=== PATIENT | male | born 1950 | race Caucasian/White ===

== ENCOUNTER 2023-02-15 16:52 | Emergency (ER) | payer MEDICARE, SELFPAY ==
--- NOTE | ~2023-02-15 | XR_ITS ---
EXAMINATION: XR CHEST CLINICAL INFORMATION: Cough COMPARISON: October 27, 2007 TECHNIQUE: 2 views of the chest were obtained. FINDINGS: No significant abnormality is noted involving the heart, lungs, mediastinum, bony thorax or soft tissues. XR/XR chest 2V IMPRESSION: No acute disease.
[2023-02-15 17:05] VITALS: BP 134/75; PULSE 94; RESP 16; TEMP 37.9; O2SAT 95; BMI 22.1
--- NOTE | 2023-02-15 17:08 | ED.GENADULT ---
HPI - General Adult General Chief complaint: General Medical Stated complaint: sugar out of control per dr Time Seen by Provider: 02/15/23 19:36 Source: patient Mode of arrival: ambulatory Limitations: no limitations History of Present Illness HPI narrative: Patient comes emergency room complaining of high blood glucose. Patient states that at home it was 216. Patient states that he called his primary care physician, told his PCP that patient has generalized weakness. Denies any fever chills, no chest pain, no URI or UTI symptoms, no abdominal pain. Related Data Previous Rx's Medication Instructions Recorded cefuroxime axetil 500 mg tablet 500 mg PO BID #14 tabs 02/15/23 Allergies Allergy/AdvReac Type Severity Reaction Status Date / Time No Known Allergies Allergy Unverified 06/25/20 14:36 Review of Systems Review of Systems: Constitutional : No Weight loss, No Fever, No Chills, No Night Sweats, coughing of generalized fatigue and weakness ENT/Mouth : No Hearing loss, No Ear Pain, No Nasal Congestion, No Sinus Pain, No Hoarseness, No sore throat, No Rhinorrhea, No Swallowing Difficulty Eyes: No Eye Pain, No Swelling, No Redness, No Foreign Body, No Discharge, No Vision Changes Cardiovascular : No Chest Pain, No SOB, No Dyspnea on Exertion, No Orthopnea, No Edema, No Palpitations Respiratory : No Cough, No Sputum, No Wheezing, No Smoke Exposure, No Dyspnea Gastrointestinal : No Nausea, No Vomiting, No Diarrhea, No Constipation, No abdominal Pain, No Hematochezia, No Melena Genitourinary : no irregular bleeding, No Dysuria, No Urinary Frequency, No Hematuria, No Urinary Incontinence, No Urgency, No Flank Pain, No Urinary Flow Changes, No Hesitancy Musculoskeletal : No joint pain, No Myalgias, No Joint Swelling Skin : No Skin Lesions, No rash Neuro : No Weakness, No Numbness, No Paresthesias, No Loss of Consciousness, No Dizziness, No Headache Psych : No Anxiety/Panic, No Depression, No SI/HI/AH/VH, No Social Issues, Heme/Lymph: No Bruising, No Bleeding,No Lymphadenopathy Endocrine : No Polyuria, No Polydipsia, No Temperature Intolerance, complaining of blood glucose above 200 PMFSH Past Medical History Medical History (Updated 02/15/23 @ 21:29 by Gilda Garcia MD) Diabetes type 2, controlled Social History Social History Advance Directives: No Advance Directives Information Provided: No Physical Exam ED Vital Signs: Vital Signs - 24 hr 02/15/23 17:05 Temperature 100.2 F Pulse Rate 94 Respiratory Rate 16 Blood Pressure 134/75 Pulse Oximetry 95 Oxygen Delivery Method Room Air BMI result Body Mass Index 22.1 Const Other: Appearance: Alert. Oriented X3. No acute distress. Eyes: Pupils equal, round and reactive to light. ENT: Pharynx normal. Neck: Normal inspection. Neck supple. No lymph nodes noted. No crepitus CVS: Normal heart rate and rhythm. Pulses normal. Normal S1 and S2 Respiratory: No respiratory distress. Breath sounds normal. No Wheezing. No rales Abdomen: Soft and nontender. No rigidity. No distention. Skin: Skin warm and dry. Normal skin color. Normal skin turgor. Extremities: No lower extremity edema. No Lacerations. No Rash Neuro: Oriented X 3. No motor deficit. No sensory deficit. Moving all extremities. No slurred speech. CN 2 through 12 grossly intact Psych: calm, cooperative, normal affect Course Course Course Narrative: RME - 72 yo male with history of DM2 on metform, glipizide, actos, active smoker who presents to the ER for evaluation of elevated sugars at home for the last couple of weeks. His glucose was 270 today at home which is very unusual for him. PCP sent him in to r/o an infection. He has had decreased appetite and a nonproductive cough lately. Plan: basic labs, COVID, CXR Medical Decision Making Medical Decision Making [facility] Narrative: -patient tested negative for COVID -blood glucose 239. White blood cell count within normal limits -I discussed with the patient that his blood sugar is fairly well controlled, today 239. Discussed with the patient that if it is high for him, he can increase his glipizide from 2.5 mg to 5 mg. Patient is at max dose of metformin and pioglitazone -it has a urinary tract infection, 1st dose of cefuroxime given in the emergency room. Differential Diagnosis Differential Diagnoses: The differential diagnosis associated with the presentation includes Lab Data [facility] Lab Attestation statement: I reviewed the patient's lab results. 02/15/23 18:02 02/15/23 18:02 Labs: Lab Results 02/15/23 02/15/23 02/15/23 Range/Units 18:02 18:02 18:02 WBC 8.1 (4.8-10.8) X10*3/uL RBC 4.41 L (4.60-5.80) X10*6/uL Hgb 13.7 L (14.0-18.0) g/dl Hct 38.9 L (42.0-52.0) % MCV 88.2 (80.0-98.0) fL MCH 31.1 (27.0-33.0) pg MCHC 35.2 (31.0-36.0) g/dl RDW 12.8 (11.0-16.0) % Plt Count 274 (160-400) X10*3/uL MPV 8.9 L (9.4-12.4) fL Immature Gran % (Auto) 0.5 H (0.0-0.4) % Neut % (Auto) 79.3 H (45-73) % Lymph % (Auto) 8.1 L (20-40) % [place] % (Auto) 11.5 H (2-11) % Eos % (Auto) 0.0 (0-4) % Baso % (Auto) 0.6 (0-2) % Lymph # (Auto) 0.7 L (1.2-4.9) X10*3/uL [place] # (Auto) 0.9 (0.1-1.2) X10*3/uL Eos # (Auto) 0.0 (0.0-0.4) X10*3/uL Baso # (Auto) 0.1 (0.0-0.2) X10*3/uL Abs Immat Gran (auto) 0.04 H (0.00-0.03) X10*3/uL Absolute Neuts (auto) 6.4 (2.0-8.3) x10*3/uL Absolute Nucleated RBC 0.000 (0.0-0.012) X10*3/uL Nucleated RBC % (auto) 0.0 (0.0-0.2) /100WBC Sodium 140 (135-145) mmol/L Potassium 4.1 (3.3-5.1) mmol/L Chloride 104 (96-108) mmol/L Carbon Dioxide 23 (22-29) mmol/L Anion Gap 17 (12-20) BUN 24 H (9-16) mg/dL Creatinine 0.94 (0.5-1.4) mg/dL Estim Creat Clear Calc 70.3 Estimated GFR > 60 Random Glucose 239 H (60-115) mg/dL Calcium 9.2 (8.4-10.2) mg/dL Magnesium 1.7 (1.6-2.6) mg/dL Total Bilirubin 0.5 (0.0-1.0) mg/dL Direct Bilirubin 0.2 (0.0-0.5) mg/dL AST 20 (5-37) U/L ALT 19 (0-40) U/L Alkaline Phosphatase 80 (39-117) U/L Total Protein 6.5 (6.5-8.0) g/dL Albumin 3.7 (3.5-5.0) g/dL Urine Color Urine Appearance Urine pH (5.0-9.0) Ur Specific [place] (1.005-1.025) Urine Protein (Neg-Trace) mg/dL Urine Glucose (UA) (Negative) mg/dL Urine Ketones (Negative) mg/dL Urine Blood (Negative) Urine Nitrite (Negative) Ur Leukocyte Esterase (Negative) COVID-19 ([facility]) Negative (Negative) COVID-19 Clin Com See Note 02/15/23 Range/Units 20:58 WBC (4.8-10.8) X10*3/uL RBC (4.60-5.80) X10*6/uL Hgb (14.0-18.0) g/dl Hct (42.0-52.0) % MCV (80.0-98.0) fL MCH (27.0-33.0) pg MCHC (31.0-36.0) g/dl RDW (11.0-16.0) % Plt Count (160-400) X10*3/uL MPV (9.4-12.4) fL Immature Gran % (Auto) (0.0-0.4) % Neut % (Auto) (45-73) % Lymph % (Auto) (20-40) % [place] % (Auto) (2-11) % Eos % (Auto) (0-4) % Baso % (Auto) (0-2) % Lymph # (Auto) (1.2-4.9) X10*3/uL [place] # (Auto) (0.1-1.2) X10*3/uL Eos # (Auto) (0.0-0.4) X10*3/uL Baso # (Auto) (0.0-0.2) X10*3/uL Abs Immat Gran (auto) (0.00-0.03) X10*3/uL Absolute Neuts (auto) (2.0-8.3) x10*3/uL Absolute Nucleated RBC (0.0-0.012) X10*3/uL Nucleated RBC % (auto) (0.0-0.2) /100WBC Sodium (135-145) mmol/L Potassium (3.3-5.1) mmol/L Chloride (96-108) mmol/L Carbon Dioxide (22-29) mmol/L Anion Gap (12-20) BUN (9-16) mg/dL Creatinine (0.5-1.4) mg/dL Estim Creat Clear Calc Estimated GFR Random Glucose (60-115) mg/dL Calcium (8.4-10.2) mg/dL Magnesium (1.6-2.6) mg/dL Total Bilirubin (0.0-1.0) mg/dL Direct Bilirubin (0.0-0.5) mg/dL AST (5-37) U/L ALT (0-40) U/L Alkaline Phosphatase (39-117) U/L Total Protein (6.5-8.0) g/dL Albumin (3.5-5.0) g/dL Urine Color Yellow Urine Appearance Cloudy Urine pH 5.5 (5.0-9.0) Ur Specific [place] 1.015 (1.005-1.025) Urine Protein 30 (1+) H (Neg-Trace) mg/dL Urine Glucose (UA) 100 H (Negative) mg/dL Urine Ketones Trace (Negative) mg/dL Urine Blood Moderate (2+) H (Negative) Urine Nitrite Negative (Negative) Ur Leukocyte Esterase Large (3+) H (Negative) COVID-19 ([facility]) (Negative) COVID-19 Clin Com Discharge Plan Discharge Clinical Impression: Acute UTI, Acute hyperglycemia Patient Disposition: Home, Self-Care Instructions: Urinary Tract Infection in Men (ED), Diabetic Hyperglycemia (ED) Additional Instructions: You have a urinary tract infection, please continue taking your current medications at the current dose. After he finished treatment for urinary tract infection, if your glucose is still elevated, please discuss with your primary care physician adjusting the dose of the medication. Please follow-up with your primary care physician tomorrow. If you have any worsening or new symptoms, please return to the emergency room or call 911 Prescriptions: New cefuroxime axetil 500 mg tablet 500 mg PO BID Qty: 14 0RF
[2023-02-15 18:07] LABS: MANUAL DIFF FLAG NO
[2023-02-15 18:34] LABS: Basophils Absolute Auto 0.1 X10*3/uL (0.0-0.2); Basophils Percent Auto 0.6 % (0-2); Hematocrit 38.9 % (42.0-52.0); Hemoglobin 13.7 g/dl (14.0-18.0); Imm Gran Abs Auto 0.04 X10*3/uL (0.00-0.03); Imm Gran Pct Auto 0.5 % (0.0-0.4); Lymphocytes Absolute Auto 0.7 X10*3/uL (1.2-4.9); Lymphocytes Percent Auto 8.1 % (20-40); Mean Corpuscular HGB Conc 35.2 g/dl (31.0-36.0); Mean Corpuscular Hemoglobin 31.1 pg (27.0-33.0); Mean Corpuscular Volume 88.2 fL (80.0-98.0); Mean Platelet Volume 8.9 fL (9.4-12.4); Monocytes Absolute Auto 0.9 X10*3/uL (0.1-1.2); Monocytes Percent Auto 11.5 % (2-11); Neutrophils Absolute Auto 6.4 x10*3/uL (2.0-8.3); Neutrophils Percent Auto 79.3 % (45-73); Platelet Count 274 X10*3/uL (160-400); Red Blood Count 4.41 X10*6/uL (4.60-5.80); Red Cell Distribution Width 12.8 % (11.0-16.0); White Blood Count 8.1 X10*3/uL (4.8-10.8)
[2023-02-15 18:44] LABS: Alanine Aminotransferase 19 U/L (0-40); Albumin Level 3.7 g/dL (3.5-5.0); Alkaline Phosphatase 80 U/L (39-117); Anion Gap 17 (12-20); Aspartate Amino Transferase 20 U/L (5-37); Bilirubin Direct 0.2 mg/dL (0.0-0.5); Bilirubin Total 0.5 mg/dL (0.0-1.0); Blood Urea Nitrogen 24 mg/dL (9-16); Calcium 9.2 mg/dL (8.4-10.2); Carbon Dioxide 23 mmol/L (22-29); Chloride 104 mmol/L (96-108); Creatinine Clr Calc Pharmacy 70.3; Estimated Glomerular Filt Rate > 60; Glucose Random 239 mg/dL (60-115); Magnesium 1.7 mg/dL (1.6-2.6); Potassium 4.1 mmol/L (3.3-5.1); Sodium 140 mmol/L (135-145); Total Protein 6.5 g/dL (6.5-8.0)
[2023-02-15 18:48] LABS: COVID-19 Test Negative (Negative); IDNOW Serial# BCCEAD1C
[2023-02-15 21:13] LABS: Appearance Urine Cloudy; Color Urine Yellow; Glucose Urine UA 100 mg/dL (Negative); Leukocyte Esterase Urine Large (3+) (Negative); Nitrite Urine Negative (Negative); PH 5.5 (5.0-9.0); Specific Gravity - Urine 1.015 (1.005-1.025); UMIC TRIGGER UACC YES; Urine Blood Moderate (2+) (Negative); Urine Ketones Trace mg/dL (Negative); Urine Protein 30 (1+) mg/dL (Neg-Trace)
[2023-02-15 21:55] LABS: Bacteria Urine 4+ (None Seen); Hyaline Casts Urine 0-2 /LPF (0-2); RBC Urine 0-2 /HPF (0-2); Squamous Epithelial Cell Urine 0-2 /HPF (0-2); UACC Culture Trigger YES; WBC Urine >50 /HPF (0-5)
[2023-02-16 05:17] LABS: Estimated Average Glucose 160 mg/dL; Hemoglobin A1c % 7.2 %
== END 2023-02-15 21:35 | disposition home or self-care (01) ==
PROVIDERS: Physician Assistant; Emergency Provider Emergency Medicine; PCP Internal Medicine
DX: N39.0 Urinary tract infection, site not specified (principal); B96.1 Klebsiella pneumoniae [K. pneumoniae] as the cause of diseases classified elsewhere; E11.65 Type 2 diabetes mellitus with hyperglycemia; Z20.822 Contact with and (suspected) exposure to COVID-19; Z79.84 Long term (current) use of oral hypoglycemic drugs
CPT/HCPCS: 36415; 71046; 80048; 80076; 81001; 83036; 83735; 85025; 87086; 87088; 87186; 87635; 99283

== ENCOUNTER 2023-10-05 18:57 | Inpatient (IN) | payer MEDICARE, SELFPAY ==
--- NOTE | ~2023-10-05 | CT_ITS ---
EXAMINATION: CT HEAD WITHOUT CONTRAST CLINICAL INFORMATION: Confusion, slurred words. COMPARISON: No similar priors. TECHNIQUE: Contiguous axial imaging was performed from the skull base to vertex without intravenous administration of contrast. This CT examination was performed using dose optimization techniques as appropriate, variously including the following: *Automated exposure control *Adjustment of mA and/or kV according to patient size (this includes techniques or standardized protocols for targeted exams where dose is matched to indication/reason for exam; i.e. extremities or head) *Use of iterative reconstruction technique DLP: 635 mGy-cm FINDINGS: Age indeterminate somewhat oval-shaped hypodensity in the left thalamus measuring up to 1.7 cm (2:24). Age indeterminate focal hypodensity in the left posteromedial occipital lobe extending from the cortical lakhani matter to the underlying white matter (2:27). Additional age indeterminate somewhat wedge shaped hypodensity in the left posterior cerebellum (2:12). Tiny hypodensity in the right basal ganglia/thalamus (2:24) most likely a lacunar infarct or prominent perivascular space. No evidence of intracranial hemorrhage. No extra-axial fluid collections. No abnormal mass effect or midline shift. No evidence of obstructive hydrocephalus. No acute soft tissue or osseous abnormalities. Small retention cyst in the left maxillary sinus. Otherwise, paranasal sinuses, mastoids and middle ear cavities are clear. CT/CT head/brain wo IV con IMPRESSION: Multifocal age indeterminate hypodensities suspicious for infarctions, largest in the left thalamus and left posteromedial occipital lobe. This critical result was discussed with Brooklyn Ruby at 10/05/2023 7:55 PM and it was ascertained that the content and urgency of the report was understood at the time of direct communication.
--- NOTE | ~2023-10-05 | XR_ITS ---
EXAMINATION: CHEST 2 VIEWS CLINICAL INFORMATION: AMS. COMPARISON: 02/15/2023. TECHNIQUE: PA and lateral views of the chest obtained. FINDINGS: The lungs are well expanded. No focal infiltrate, effusion, edema, or pneumothorax. Cardiac and mediastinal silhouettes are within normal limits for technique. No acute bony abnormality seen XR/XR chest 2V IMPRESSION: No evidence of acute disease
--- NOTE | ~2023-10-05 | MR_ITS ---
MRI OF THE BRAIN WITHOUT IV CONTRAST INDICATION: CVA COMPARISON: CTA head and neck 10/05/2023. TECHNIQUE: Multiplanar multisequence MR imaging of the brain was obtained without IV contrast. FINDINGS: Acute infarcts within the left greater than right thalamus. Mild petechial hemorrhage within the left thalamus. There is no hydrocephalus, extra-axial surface collection, or herniation. There is global cerebral volume loss, there is moderate chronic microangiopathy, there are multiple chronic cortical/subcortical infarcts within the periphery of the cerebral hemispheres bilaterally, and there are multiple chronic lacunar infarcts within the cerebellar hemispheres bilaterally. The major flow voids at the skull base are preserved. The midline structures are normal. The cerebellar tonsils are normally positioned. The The craniocervical junction is normal. Osseous marrow signal intensity is homogenous. The visualized soft tissues are unremarkable. Moderate mucosal thickening left maxillary sinus. MR/MR head/brain wo con IMPRESSION: - Acute infarcts within the left greater than right thalamus. Mild petechial hemorrhage within the left thalamus. - There is global cerebral volume loss, there is moderate chronic microangiopathy, there are multiple chronic cortical/subcortical infarcts within the periphery of the cerebral hemispheres bilaterally, and there are multiple chronic lacunar infarcts within the cerebellar hemispheres bilaterally. Covering provider paged with these findings at 12:03 PM and 10/06/2023.
--- NOTE | ~2023-10-05 | CT_ITS ---
EXAMINATION: CTA OF THE HEAD AND NECK CLINICAL INFORMATION: Slurred speech. Question stroke versus TIA. COMPARISON: Head CT from 10/05/2023. TECHNIQUE: Test bolus sequences followed by intravenous administration 85 mL of Omnipaque 350. Helical imaging was performed in the axial plane from the mediastinum to the skull vertex. Delayed postcontrast imaging of the head was also performed. The data was processed at the medicine technologist's workstation for generation of MIP sequences. Three-dimensional volume rendered reformatted images were also generated at an offline 3-D workstation. Stenoses are assessed in accordance with NASCET criteria unless otherwise indicated. This CT examination was performed using dose optimization techniques as appropriate, variously including the following: *Automated exposure control *Adjustment of mA and/or kV according to patient size (this includes techniques or standardized protocols for targeted exams where dose is matched to indication/reason for exam; i.e. extremities or head) *Use of iterative reconstruction technique DLP: 1465 mGy-cm. FINDINGS: CTA NECK: The imaged aortic arch and origins of the great vessels are normal in caliber with mild atherosclerotic wall calcifications along the aortic arch. The common carotid arteries are widely patent. The carotid bifurcations are normal. The cervical internal carotid arteries are normal. The vertebral arteries opacify normally and are of normal caliber. [id number] left maxillary sinus mucosal thickening noted. There are secretions within the tracheal airway at the thoracic inlet, placing the patient at risk for aspiration. Otherwise, the soft tissues of the neck are unremarkable. Moderate multilevel cervical spondylosis noted with a leftward curvature of the upper cervical spine and rightward curvature of the lower cervical spine. The imaged portions of the lungs are clear with [id number] emphysematous changes. CTA HEAD: The intradural vertebral arteries and basilar artery are normal. The posterior cerebral arteries are widely patent. The internal carotid arteries are relatively of normal caliber with focal atherosclerotic wall calcifications in the supraclinoid segment of the left ICA. The DEJUAN and MCA vascular complexes bilaterally are normal. Low-density focus again visible in the ventromedial left thalamus. Additional low-attenuation involves the subcortical white matter and lakhani matter of the left parietal-occipital lobes, consistent with age-indeterminate infarcts. Small chronic lacunar infarct noted in the right thalamus. There is no abnormal parenchymal or leptomeningeal enhancement. The venous sinuses opacify normally. CT/CT angio head neck IMPRESSION: No hemodynamically significant stenosis or occlusion of the cervical or intracranial vasculature. Age-indeterminate, though suspected acute infarct in the left thalamus. Additional age indeterminate infarct in the left posterior parietal-occipital lobes. Imaging findings reported to PRISCILA Ruby at 9:18 PM on 10/05/2023.
[2023-10-05 19:02] VITALS: BP 137/92; PULSE 84; RESP 18; TEMP 36.7; O2SAT 94; BMI 22.9
--- NOTE | 2023-10-05 19:03 | ED_ITS ---
HPI - General Adult General Chief complaint: Altered Mental Status Stated complaint: ?stroke Time Seen by Provider: 10/05/23 19:22 Source: patient and family (patient's and son) Mode of arrival: ambulatory Limitations: no limitations History of Present Illness HPI narrative: Patient is a 73 year old assigned male at with a history of DM and smoking presenting to the emergency department today with word slurring and unsteady gait. Patient states that he has no complaints at this time. Patient's states that since 10/04/2023 at 1130am the patient has been slurring his words and having difficulty ambulating. Patient's states that she thought it was because of his blood sugar but it never improved. Patient denies any dizziness, lightheadedness, abdominal pain, nausea, vomiting, fever, chills, blurry vision, double vision, loss of vision, chest pain, difficulty breathing, shortness of breath, back pain, night sweats, pain with urination, increased urinary frequency, increased urinary urgency, blood in his urine or stool, syncope or a near syncopal episode, recent trauma or falls, bowel incontinence, bladder incontinence, bowel retention, bladder retention, or any other complaints at this time. Onset (ago): day(s) (1) Relieving factors: none Exacerbating factors: none Associated symptoms: denies other symptoms Treatments prior to arrival: none Related Data Home Medications Medication Instructions Recorded Confirmed atorvastatin 10 mg tablet 10 mg PO DAILY 10/05/23 10/05/23 glipizide 2.5 mg tablet, extended 2.5 mg PO DAILY 10/05/23 10/05/23 release 24 hr metformin 500 mg tablet 500 mg PO BID 10/05/23 10/05/23 pioglitazone 45 mg tablet 45 mg PO DAILY 10/05/23 10/05/23 sildenafil 100 mg tablet 100 mg PO DAILY 10/05/23 10/05/23 Previous Rx's Medication Instructions Recorded cefuroxime axetil 500 mg tablet 500 mg PO BID #14 tabs 02/15/23 Allergies Allergy/AdvReac Type Severity Reaction Status Date / Time No Known Allergies Allergy Unverified 06/25/20 14:36 Review of Systems 2 Constitutional: Constitutional: Reports no additional constitutional complaints, Denies chills, Denies fever(s) and Denies night sweats Eyes: Eyes: Reports no additional eye complaints, Denies blurry vision, Denies change in vision, Denies diplopia, Denies eye discharge, Denies loss of vision and Denies eye pain ENT: Denies dizziness Cardiovascular: Cardiovascular: Reports no additional cardiovascular complaints, Denies chest pain, Denies lightheadedness, Denies Loss of Consciousness and Denies dyspnea Respiratory: Respiratory: Reports no additional respiratory complaints and Denies dyspnea Gastrointestinal: Gastrointestinal: Reports no additional gastrointestinal complaints, Denies abdominal pain, Denies melena, Denies hematochezia, Denies change in bowel habits and Denies change in stool character Genitourinary: Genitourinary: Reports no additional male genitourinary complaints, Denies hematuria, Denies oliguria, Denies difficulty urinating, Denies dysuria, Denies urinary frequency, Denies urinary hesitancy, Denies urinary incontinence and Denies urinary urgency Musculoskeletal: Musculoskeletal: Reports no additional musculoskeletal complaints, Denies numbness and Denies tingling Neurologic: Denies dizziness, Denies loss of vision, Denies numbness and Denies tingling Comments: word slurring and unsteady gait - both resolved Psychiatric: Psychiatric: Reports no additional psychiatric complaints Endocrine: Endocrine: Reports no additional endocrine complaints Hematologic/Lymphatic: Hematologic/Lymphatic: Reports no additional hematologic/lymphatic complaints Allergic/Immunologic: Allergic/Immunologic: Reports no additional allergic/immunologic complaints PMFSH Past Medical History Attestation statement: The following information was validated with the patient. (all information validated with the patient's son and ) Source: old records reviewed, obtained from family (patient's son and provided additional history and confirmed the history provided by the patient.) and nursing notes reviewed Medical History (Updated 10/06/23 @ 01:46 by PRISCILA Urias) Smoker unmotivated to quit Type 2 diabetes mellitus Diabetes type 2, controlled Social History Social History Patient Tobacco Use Status: Never used Tobacco Smoked in Last 30 Days: No Use of substances other than those prescribed or required for medical reasons: No Advance Directives: No Advance Directives Information Provided: No Nutrition Risks: No Nutritional Risk Physical Exam ED Vital Signs: Vital Signs - 24 hr 10/05/23 19:02 10/05/23 20:47 10/05/23 22:47 Temperature 98.1 F Pulse Rate 84 68 63 Respiratory Rate 18 16 16 Blood Pressure 137/92 H 167/84 H 152/90 H Pulse Oximetry 94 97 96 Oxygen Delivery Method Room Air Room Air Room Air BMI result Body Mass Index 22.9 Const General: cooperative, no acute distress, alert and awake Nutritional Appearance: well nourished Orientation/consciousness: patient oriented x3 Limitations: no limitations HENMT Head: Yes normal to inspection and Yes atraumatic Ears: hearing grossly normal bilaterally and external ears normal General nose exam: Normal external nose present, no nasal discharge noted and no epistaxis Face and sinus: Yes normal facial exam, No abrasion and No laceration Mouth: Normal oral and palatal mucosa present, no drooling and no muffled voice Eyes General: appearance normal, both eyes and all related structures Periorbital: periorbital findings normal Eyelids: Yes eyelids normal Conjunctivae: conjunctivae normal Pupils: Equal, round and reactive pupils present EOM: EOMs intact bilaterally Neck Neck: Yes normal visual inspection, Yes full ROM and Yes no lymphadenopathy Chest Chest palpation & inspection: normal inspection of the chest Resp Effort & Inspection: normal respiratory effort and able to speak in complete sentences GI Inspection: Yes normal to inspection Neuro General: patient oriented x3 and moves all extremities Cranial nerves: Yes Equal, round and reactive pupils present Cognition (Neuro): normal cognition Motor exam (neuro): 5/5 motor strength present throughout Sensory Exam: Normal double simultaneous stimulation for sensation Coordination: [id number] test normal Extrem General: Yes normal to inspection, Yes full ROM and Yes capillary refill normal Psych Appearance: grossly normal Mental Status: mental status grossly normal Affect: normal affect Attitude: cooperative Thought process: Normal thought process present Thought content: Normal thought content present Insight: Good insight present (Psych) NIH Stroke Scale Internal: Initial- Upon Arrival Time: 19:10 Level of Consciousness: Alert Level of Consciousness Questions: Answers one question correctly Level of Consciousness Commands: Performs both tasks correctly Best Gaze: Normal Visual: No visual loss Facial Palsy: Normal Motor Arm (Right): No drift Motor Arm (Left): No drift Motor Leg (Right): No drift Motor Leg (Left): No drift Limb Ataxia: Absent Sensory: Normal Best Language: No aphasia Dysarthia: Mild to moderate dysarthria Extinction and Inattention: No abnormality Score: 2 Course Course Course Narrative: RME:?73 year old male w/ history of tobacco use, HTN, presents today with family for evaluation of confusion and slurred speech. states that upon waking at 11:30 a.m. yesterday, patient was unable to speak or walk. This continued throughout the day and he began slurring his words. His gait has been off and he was stumbling down the caal. NIH stroke 2. confused on exam. AOx2. labs, CT head ordered. Full HPI, ROS and PE to be performed by the primary ED provider. Medications Administered Generic Name Dose Route Start Last Admin Trade Name Freq PRN Reason Stop Dose Admin Enoxaparin Sodium 40 mg 10/05/23 23:45 10/06/23 00:54 Enoxaparin Sodium 40 Mg/0.4 Ml Syringe SUBCUT 40 mg BEDTIME FREDIS Administration Discontinued Medications Generic Name Dose Route Start Last Admin Trade Name Freq PRN Reason Stop Dose Admin Aspirin 324 mg 10/05/23 20:06 10/05/23 20:44 Aspirin 81 Mg Tab.Chew PO 10/05/23 20:07 324 mg ONCE ONE Administration Potassium Chloride 10 meq in 100 mls @ 100 mls/hr 10/05/23 20:15 10/05/23 22:58 Potassium Chloride/H20 IV 10/05/23 22:14 Infused Q1H FREDIS Infusion Iohexol 85 ml 10/05/23 20:38 10/05/23 20:38 Iohexol 350 Mg/Ml 100 Ml Infus..Btl IV 10/05/23 20:39 85 ml ONCE ONE Administration Medical Decision Making Medical Decision Making [facility] Narrative: Patient is a 73 year old assigned male at with a history of DM and tobacco use presenting to the emergency department today after an episode of slurred speech and being unbalanced. Patient's physical exam was unremarkable. Patient's blood work showed a mild hypokalemia of 3.1. Patient's labs were otherwise unremarkable. Patient's urine showed no acute process. Patient's EKG was unremarkable. Patient's chest x-ray showed no acute process. Patient's head CT showed evidence of multiple infarcts. Patient's head CTA showed evidence of the same infarcts and now large vessel occlusion. I spoke to the hospitalist team who agreed to admission. Patient was given IV potassium and PO aspirin. I explained my physical exam findings as well as all test results to the patient, the patient's , and the patient's son. I answered all questions asked by the patient, the patient's , and the patient's son. Patient, the patient's , and the patient's son verbalized agreement and understanding with this treatment plan and admission. Differential Diagnosis Differential Diagnoses: The differential diagnosis associated with the presentation includes CVA Stroke TIA Admission/Observation Consideration of admission/observation: Escalation of care including admission/observation considered Patient admitted. Consult Healthcare Provider Management of the patient was discussed with: Hospitalist (agreed to admission) Lab Data MDM Lab Attestation statement: I reviewed the patient's lab results. My interpretation of these results are in the MDM Rationale portion of this note. 10/05/23 19:23 10/05/23 19:23 Labs: Lab Results 10/05/23 10/05/23 10/05/23 Range/Units 19:23 21:18 22:48 WBC 5.9 (4.8-10.8) X10*3/uL RBC 4.61 (4.60-5.80) X10*6/uL Hgb 14.2 (14.0-18.0) g/dl Hct 41.4 L (42.0-52.0) % MCV 89.8 (80.0-98.0) fL MCH 30.8 (27.0-33.0) pg MCHC 34.3 (31.0-36.0) g/dl RDW 13.4 (11.0-16.0) % Plt Count 194 D (160-400) X10*3/uL MPV 9.2 L (9.4-12.4) fL Immature Gran % (Auto) 0.2 (0.0-0.4) % Neut % (Auto) 62.8 (45-73) % Lymph % (Auto) 23.9 (20-40) % [place] % (Auto) 10.3 (2-11) % Eos % (Auto) 1.4 (0-4) % Baso % (Auto) 1.4 (0-2) % Lymph # (Auto) 1.4 (1.2-4.9) X10*3/uL [place] # (Auto) 0.6 (0.1-1.2) X10*3/uL Eos # (Auto) 0.1 (0.0-0.4) X10*3/uL Baso # (Auto) 0.1 (0.0-0.2) X10*3/uL Abs Immat Gran (auto) 0.01 (0.00-0.03) X10*3/uL Absolute Neuts (auto) 3.7 (2.0-8.3) x10*3/uL Absolute Nucleated RBC 0.000 (0.0-0.012) X10*3/uL Nucleated RBC % (auto) 0.0 (0.0-0.2) /100WBC PT 12.8 (11.1-13.3) SEC INR 1.1 (0.9-1.1) Sodium 145 (135-145) mmol/L Potassium 3.1 L D (3.3-5.1) mmol/L Chloride 107 (96-108) mmol/L Carbon Dioxide 27 (22-29) mmol/L Anion Gap 14 (12-20) BUN 16 (9-16) mg/dL Creatinine 0.86 (0.5-1.4) mg/dL Estim Creat Clear Calc 76.1 Estimated GFR > 60 Random Glucose 148 H (60-115) mg/dL Calcium 9.4 (8.4-10.2) mg/dL Magnesium 1.7 (1.6-2.6) mg/dL Total Bilirubin 0.5 (0.0-1.0) mg/dL AST 17 (5-37) U/L ALT 13 (0-40) U/L Alkaline Phosphatase 62 (39-117) U/L Troponin I High Sens 5.6 5.9 (<3.5-35.0) ng/L Total Protein 6.7 (6.5-8.0) g/dL Albumin 4.0 (3.5-5.0) g/dL Lipase 12 (8-78) U/L Urine Color Yellow Urine Appearance Clear Urine pH 7.5 (5.0-9.0) Ur Specific [place] >= 1.030 H (1.005-1.025) Urine Protein Negative (Neg-Trace) mg/dL Urine Glucose (UA) Negative (Negative) mg/dL Urine Ketones Negative (Negative) mg/dL Urine Blood Trace H (Negative) Urine Nitrite Negative (Negative) Ur Leukocyte Esterase Negative (Negative) Urine RBC 3-5 H (0-2) /HPF Urine WBC 0-5 (0-5) /HPF Ur Squamous Epith Cells 0-2 (0-2) /HPF Urine Bacteria None Seen (None Seen) Hyaline Casts 0-2 (0-2) /LPF Independent Interpretation I performed an independent interpretation of an: EKG, Plain X-Ray and CT Scan Interpretation: My interpretation is in agreement with the radiologist's impression of these imaging studies. - EXAMINATION: CT HEAD WITHOUT CONTRAST CLINICAL INFORMATION: Confusion, slurred words. COMPARISON: No similar priors. TECHNIQUE: Contiguous axial imaging was performed from the skull base to vertex without intravenous administration of contrast. This CT examination was performed using dose optimization techniques as appropriate, variously including the following: *Automated exposure control *Adjustment of mA and/or kV according to patient size (this includes techniques or standardized protocols for targeted exams where dose is matched to indication/reason for exam; i.e. extremities or head) *Use of iterative reconstruction technique DLP: 635 mGy-cm FINDINGS: Age indeterminate somewhat oval-shaped hypodensity in the left thalamus measuring up to 1.7 cm (2:24). Age indeterminate focal hypodensity in the left posteromedial occipital lobe extending from the cortical lakhani matter to the underlying white matter (2:27). Additional age indeterminate somewhat wedge shaped hypodensity in the left posterior cerebellum (2:12). Tiny hypodensity in the right basal ganglia/thalamus (2:24) most likely a lacunar infarct or prominent perivascular space. No evidence of intracranial hemorrhage. No extra-axial fluid collections. No abnormal mass effect or midline shift. No evidence of obstructive hydrocephalus. No acute soft tissue or osseous abnormalities. Small retention cyst in the left maxillary sinus. Otherwise, paranasal sinuses, mastoids and middle ear cavities are clear. CT/CT head/brain wo IV con IMPRESSION: Multifocal age indeterminate hypodensities suspicious for infarctions, largest in the left thalamus and left posteromedial occipital lobe. This critical result was discussed with Brooklyn Ruby at 10/05/2023 7:55 PM and it was ascertained that the content and urgency of the report was understood at the time of direct communication. Dictated By: Billie Darnell Signed By: Electronically signed by Billie Darnell 10/05/231956 - EXAMINATION: CHEST 2 VIEWS CLINICAL INFORMATION: AMS. COMPARISON: 02/15/2023. TECHNIQUE: PA and lateral views of the chest obtained. FINDINGS: The lungs are well expanded. No focal infiltrate, effusion, edema, or pneumothorax. Cardiac and mediastinal silhouettes are within normal limits for technique. No acute bony abnormality seen XR/XR chest 2V IMPRESSION: No evidence of acute disease Dictated By: Ottoniel Parks MD Signed By: Electronically signed by Ottoniel Parks MD 10/05/232014 - EXAMINATION: CTA OF THE HEAD AND NECK CLINICAL INFORMATION: Slurred speech. Question stroke versus TIA. COMPARISON: Head CT from 10/05/2023. TECHNIQUE: Test bolus sequences followed by intravenous administration 85 mL of Omnipaque 350. Helical imaging was performed in the axial plane from the mediastinum to the skull vertex. Delayed postcontrast imaging of the head was also performed. The data was processed at the lab technologist's workstation for generation of MIP sequences. Three-dimensional volume rendered reformatted images were also generated at an offline 3-D workstation. Stenoses are assessed in accordance with NASCET criteria unless otherwise indicated. This CT examination was performed using dose optimization techniques as appropriate, variously including the following: *Automated exposure control *Adjustment of mA and/or kV according to patient size (this includes techniques or standardized protocols for targeted exams where dose is matched to indication/reason for exam; i.e. extremities or head) *Use of iterative reconstruction technique DLP: 1465 mGy-cm. FINDINGS: CTA NECK: The imaged aortic arch and origins of the great vessels are normal in caliber with mild atherosclerotic wall calcifications along the aortic arch. The common carotid arteries are widely patent. The carotid bifurcations are normal. The cervical internal carotid arteries are normal. The vertebral arteries opacify normally and are of normal caliber. Ppfx-js-xnzalior left maxillary sinus mucosal thickening noted. There are secretions within the tracheal airway at the thoracic inlet, placing the patient at risk for aspiration. Otherwise, the soft tissues of the neck are unremarkable. Moderate multilevel cervical spondylosis noted with a leftward curvature of the upper cervical spine and rightward curvature of the lower cervical spine. The imaged portions of the lungs are clear with [id number] emphysematous changes. CTA HEAD: The intradural vertebral arteries and basilar artery are normal. The posterior cerebral arteries are widely patent. The internal carotid arteries are relatively of normal caliber with focal atherosclerotic wall calcifications in the supraclinoid segment of the left ICA. The DEJUAN and MCA vascular complexes bilaterally are normal. Low-density focus again visible in the ventromedial left thalamus. Additional low-attenuation involves the subcortical white matter and lakhani matter of the left parietal-occipital lobes, consistent with age-indeterminate infarcts. Small chronic lacunar infarct noted in the right thalamus. There is no abnormal parenchymal or leptomeningeal enhancement. The venous sinuses opacify normally. CT/CT angio head neck IMPRESSION: No hemodynamically significant stenosis or occlusion of the cervical or intracranial vasculature. Age-indeterminate, though suspected acute infarct in the left thalamus. Additional age indeterminate infarct in the left posterior parietal-occipital lobes. Imaging findings reported to PRISCILA Ruby at 9:18 PM on 10/05/2023. Dictated By: KELLY LAINEZ MD Signed By: Electronically signed by KELLY LAINEZ MD 10/05/232119 - Vent. Rate: 072 BPM Atrial Rate: 072 BPM P-R Int: 154 ms QRS Dur: 134 ms QT Int: 432 ms P-R-T Axes: 054 091 036 degrees QTc Int: 473 ms Normal sinus rhythm Right bundle branch block Cannot rule out Inferior infarct, age undetermined Abnormal ECG When compared with ECG of 13-JUN-2011 22:24, Vent. rate has increased BY 24 BPM Referred By: Bina Culp Electronically Signed By: DD/ 34 Radiology Impression Discussion of test interpretation with radiology: I have reviewed the radiologist's reading. Independent Historian Clinical information obtained from an independent historian. History obtained from or confirmed by: Spouse (patient's provided additional history and confirmed the history provided by the patient.) and Other (patient's son provided additional history and confirmed the history provided by the patient.) Chronic Conditions Patient?s care impacted by: Diabetes Critical Care Time Critical Care Time Critical Care Time: Yes Total Critical Care Time: 55 Attestation: I spent 55 minutes of Critical Care Time with this patient. This does not include time spent on separately reported billable procedures. Discharge Plan Discharge Clinical Impression: CVA (cerebral vascular accident), Hypokalemia Patient Disposition: Admitted As Inpatient Interventions: Admission Worksheet (ED) Last Done: 10/06/23 00:40
--- NOTE | 2023-10-05 19:12 | ECG_ITS ---
Test Reason : STROKE Blood Pressure : / mmHG Vent. Rate : 072 BPM Atrial Rate : 072 BPM P-R Int : 154 ms QRS Dur : 134 ms QT Int : 432 ms P-R-T Axes : 054 091 036 degrees QTc Int : 473 ms Normal sinus rhythm Right bundle branch block Cannot rule out Inferior infarct , age undetermined Abnormal ECG When compared with ECG of 13-JUN-2011 22:24, Vent. rate has increased BY 24 BPM Referred By: Bina Culp Electronically Signed By:CALE CARTER
[2023-10-05 19:27] LABS: MANUAL DIFF FLAG NO
[2023-10-05 19:33] LABS: INTERNATIONAL NORM RATIO 1.1 (0.9-1.1); Prothrombin Time 12.8 SEC (11.1-13.3)
[2023-10-05 19:34] LABS: Basophils Absolute Auto 0.1 X10*3/uL (0.0-0.2); Basophils Percent Auto 1.4 % (0-2); Eosinophils Absolute Auto 0.1 X10*3/uL (0.0-0.4); Eosinophils Percent Auto 1.4 % (0-4); Hematocrit 41.4 % (42.0-52.0); Hemoglobin 14.2 g/dl (14.0-18.0); Imm Gran Abs Auto 0.01 X10*3/uL (0.00-0.03); Imm Gran Pct Auto 0.2 % (0.0-0.4); Lymphocytes Absolute Auto 1.4 X10*3/uL (1.2-4.9); Lymphocytes Percent Auto 23.9 % (20-40); Mean Corpuscular HGB Conc 34.3 g/dl (31.0-36.0); Mean Corpuscular Hemoglobin 30.8 pg (27.0-33.0); Mean Corpuscular Volume 89.8 fL (80.0-98.0); Mean Platelet Volume 9.2 fL (9.4-12.4); Monocytes Absolute Auto 0.6 X10*3/uL (0.1-1.2); Monocytes Percent Auto 10.3 % (2-11); Neutrophils Absolute Auto 3.7 x10*3/uL (2.0-8.3); Neutrophils Percent Auto 62.8 % (45-73); Platelet Count 194 X10*3/uL (160-400); Red Blood Count 4.61 X10*6/uL (4.60-5.80); Red Cell Distribution Width 13.4 % (11.0-16.0); White Blood Count 5.9 X10*3/uL (4.8-10.8)
[2023-10-05 19:46] LABS: Alanine Aminotransferase 13 U/L (0-40); Alkaline Phosphatase 62 U/L (39-117); Anion Gap 14 (12-20); Aspartate Amino Transferase 17 U/L (5-37); Bilirubin Total 0.5 mg/dL (0.0-1.0); Blood Urea Nitrogen 16 mg/dL (9-16); Calcium 9.4 mg/dL (8.4-10.2); Carbon Dioxide 27 mmol/L (22-29); Chloride 107 mmol/L (96-108); Creatinine Clr Calc Pharmacy 76.1; Estimated Glomerular Filt Rate > 60; Glucose Random 148 mg/dL (60-115); Lipase 12 U/L (8-78); Magnesium 1.7 mg/dL (1.6-2.6); Potassium 3.1 mmol/L (3.3-5.1); Sodium 145 mmol/L (135-145); Total Protein 6.7 g/dL (6.5-8.0)
[2023-10-05 19:54] LABS: Troponin-I High Sensitivity 5.6 ng/L (<3.5-35.0)
[2023-10-05] MEDS: iohexoL 350 MG/ML 100 ML INFUS..BTL 85 ML IV (20:38)
[2023-10-05] MEDS: Potassium Chloride/H20 10 MEQ/100 ML PIGGYBACK 100 MEQ IV ×2 (20:44→21:48)
[2023-10-05] MEDS: Aspirin 81 MG TAB.CHEW 324 MG PO (20:44)
[2023-10-05 20:47] VITALS: BP 167/84; PULSE 68; RESP 16; O2SAT 97
--- NOTE | 2023-10-05 20:49 | PC.NURSE ---
pt passed swallow eval; aspirin given per mar. iv potassium infusing per mar. nsr on monitor.
[2023-10-05 21:45] LABS: Troponin-I High Sensitivity 5.9 ng/L (<3.5-35.0)
[2023-10-05 22:47] VITALS: BP 152/90; PULSE 63; RESP 16; O2SAT 96
[2023-10-05 22:58] LABS: Appearance Urine Clear; Color Urine Yellow; Glucose Urine UA Negative (Negative); Leukocyte Esterase Urine Negative (Negative); Nitrite Urine Negative (Negative); PH 7.5 (5.0-9.0); Specific Gravity - Urine >= 1.030 (1.005-1.025); UMIC TRIGGER UACC YES; Urine Blood Trace (Negative); Urine Ketones Negative (Negative); Urine Protein Negative (Neg-Trace)
--- NOTE | 2023-10-05 23:09 | PC.NURSE ---
no changes to previous assessment by this RN. pt resting comfortably in stretcher. nsr on monitor. iv K+ infused. call park within reach.
[2023-10-05 23:17] LABS: Bacteria Urine None Seen (None Seen); Hyaline Casts Urine 0-2 /LPF (0-2); Squamous Epithelial Cell Urine 0-2 /HPF (0-2); WBC Urine 0-5 /HPF (0-5)
--- NOTE | 2023-10-05 23:27 | P.HPHOSP_ITS ---
History of Present Illness Date of Service: 10/05/23 Attending physician on admission: George Paulino Chief Complaint: Unsteady gait & slurred speech that occured a day ago 73 year old white male at with a history of T2DM and active tobacco use disorder is brought to the emergency room from home by his for evaluation of stroke symptoms. He reportedly woke up at 11:30 AM yesterday with an unsteady gait and slurred speech. This improved during the day and he was back to his baseline by the time they got to the emergency room today. His initially thought that this was because of his blood sugars hence the delay in presentation. He otherwise has no other complaints at this time. Initial work up done in the emergency room was notable for finding of mild hypokalemia with a serum potassium of 3.[address] head with findings suspicious for infarctions including age indeterminate hypodensities in the left thalamus, left posteromedial occipital lobe, left posterior cerebellum and right basal ganglia. Admission was requested for continued work up. Review of Systems 2 Review of Systems: Yes all other systems are reviewed and are negative [facility] Medical History (Updated 10/06/23 @ 02:47 by George Paulino MD) Smoker unmotivated to quit Type 2 diabetes mellitus Diabetes type 2, controlled Pertinent family history: Reviewed with patient and not perinent to this admission Social History Patient Tobacco Use Status: Never used Tobacco Smoked in Last 30 Days: No Use of substances other than those prescribed or required for medical reasons: No Advance Directives: No Advance Directives Information Provided: No Nutrition Risks: No Nutritional Risk Meds Allergies Allergy/AdvReac Type Severity Reaction Status Date / Time No Known Allergies Allergy Unverified 06/25/20 14:36 Home Medications Medication Instructions Recorded Confirmed Last Taken Type atorvastatin 10 mg tablet 10 mg PO DAILY 10/05/23 10/05/23 Unknown History glipizide 2.5 mg tablet, extended 2.5 mg PO DAILY 10/05/23 10/05/23 Unknown History release 24 hr metformin 500 mg tablet 500 mg PO BID 10/05/23 10/05/23 Unknown History pioglitazone 45 mg tablet 45 mg PO DAILY 10/05/23 10/05/23 Unknown History sildenafil 100 mg tablet 100 mg PO DAILY 10/05/23 10/05/23 Unknown History Physical Exam 2 Vital Signs and Narrative: Vital Signs: Last Vital Signs Temp 98.1 F 10/05/23 19:02 Pulse 63 10/05/23 22:47 Resp 16 10/05/23 22:47 BP 152/90 H 10/05/23 22:47 Pulse Ox 96 10/05/23 22:47 O2 Del Method Room Air 10/05/23 22:47 BMI result Body Mass Index 22.9 General: Well nourished elderly white male in bed. Awake, alert and oriented x 4. No apparent distress Eyes: No pallor or jaundice. PERRLA, EOMI HENT: Moist oral mucus membranes. No oropharyngeal lesions. Neck: Supple. No cervical adenopathy. No JVD Cardiovascular: Regular rate and rhythm. Normal heart sounds. No murmurs, rubs or gallops. No JVD. No peripheral edema. Respiratory: Normal respiratory effort with no accessory muscle use. CTAB. Gastrointestinal: Abdomen is soft, non-tender, non-distended. NABS. No hepatosplenomegaly Extremities: No edema. No calf tenderness. Good peripheral pulses Skin: Warm/Dry. No rashes. No mottling. Capillary refill is < 2 seconds Neurological: AAOx4. Intact speech & cognition. Normal gait & balance. CN II - XII grossly intact but not individually tested. No motor or sensory deficits Hematologic: No bleeding. No ecchymosis. No swollen or tender lymph nodes. Psychiatric: Cooperative. Appropriate mood and affect Results Labs 10/05/23 19:23 10/05/23 19:23 Labs: Laboratory Results - last 24 hr 10/05/23 10/05/23 19:23 22:48 MCV 89.8 MCH 30.8 MCHC 34.3 RDW 13.4 Plt Count 194 D MPV 9.2 L Immature Gran % (Auto) 0.2 Neut % (Auto) 62.8 Lymph % (Auto) 23.9 [place] % (Auto) 10.3 Eos % (Auto) 1.4 Baso % (Auto) 1.4 Lymph # (Auto) 1.4 [place] # (Auto) 0.6 Eos # (Auto) 0.1 Baso # (Auto) 0.1 Abs Immat Gran (auto) 0.01 Absolute Neuts (auto) 3.7 Absolute Nucleated RBC 0.000 Nucleated RBC % (auto) 0.0 PT 12.8 INR 1.1 Anion Gap 14 Estim Creat Clear Calc 76.1 Estimated GFR > 60 Random Glucose 148 H Calcium 9.4 Magnesium 1.7 Total Bilirubin 0.5 AST 17 ALT 13 Alkaline Phosphatase 62 Total Protein 6.7 Albumin 4.0 Lipase 12 Urine Color Yellow Urine Appearance Clear Urine pH 7.5 Ur Specific [place] >= 1.030 H Urine Protein Negative Urine Glucose (UA) Negative Urine Ketones Negative Urine Blood Trace H Urine Nitrite Negative Ur Leukocyte Esterase Negative Urine RBC 3-5 H Urine WBC 0-5 Ur Squamous Epith Cells 0-2 Urine Bacteria None Seen Hyaline Casts 0-2 ECG ECG interpretation date: 10/06/23 ECG interpretation time: 02:48 Prior ECG tracings: available for review Interpretation: NSR at 72 bpm with RBBB pattern. Normal intervals. No acute ischemic changes. Imaging Radiologist's Impressions: Impressions Head CT 10/05/23 19:23 Multifocal age indeterminate hypodensities suspicious for infarctions, largest in the left thalamus and left posteromedial occipital lobe. Chest X-Ray 10/05/23 19:45 No evidence of acute disease Head/Neck CTA 10/05/23 20:38 No hemodynamically significant stenosis or occlusion of the cervical or intracranial vasculature. Age-indeterminate, though suspected acute infarct in the left thalamus. Additional age indeterminate infarct in the left posteriorparietal-occipital lobes. Assessment and Plan (1) CVA (cerebral vascular accident): Qualifiers: CVA mechanism: unspecified Qualified Code(s): I63.9 - Cerebral infarction, unspecified Status: Acute (2) Hypokalemia: Status: Acute Plan 73 year old white male with history of T2DM, hyperlipidemia and tobacco use disorder here with 1. CVA - acute to subacute - admit and get MRI of brain and MRA of head and neck - check lipid panel, TSH, A1c - get 2 D echo - Neurology consult 2. Type 2 diabetes mellitus - resume Metformin, Glipizide and actos 3. Hyperlipidemia - resume atorvastatin 4, Smoker - encourage smoking cessation DVT: SC Lovenox CODE STATUS: Full code Admission for at least 2 midnights for management of CVA Total time managing care of this patient today: 75 minutes. Quality Stroke Does the patient have a stroke diagnosis?: Yes Reason for No Anti-thrombotic by Day Two: N/A - Med Ordered VTE Prior VTE?: No VTE Risk Level:: Medical - moderate - high VTE Device Contraindication: Treatment Not Indicated VTE Drug Contraindication: N/A - Med Ordered
[2023-10-06] MEDS: Enoxaparin Sodium 40 MG/0.4 ML SYRINGE SUBCUT (00:54)
[2023-10-06 02:32] VITALS: BP 170/87; PULSE 66; RESP 17; TEMP 37.1; O2SAT 98
[2023-10-06 02:35] LABS: Glucose, Whole Blood 109 mg/dL (60-115)
[2023-10-06 02:37] VITALS: BMI 22.2
[2023-10-06 03:05] VITALS: BP 169/89; PULSE 64; RESP 18; TEMP 36.8; O2SAT 95
--- NOTE | 2023-10-06 07:00 | CA_ITS ---
Transthoracic Echocardiogram Patient (Last, First, Middle): Vincent Mast J Gender: Male Date of : 1950 Age: 73 Procedure Date: 10/06/2023 Procedure Type: Transthoracic Echocardiogram Location[place] [facility] [place] Height: 172.72 cm Weight: 65.77 kg BSA: 1.78 m2 Heart Rate: bpm BP: 169 / 89 mmHg Engineering Team Supervisor: Referring MD: George Paulino MD Symptoms: CVA Study Quality: Fair ECG Rhythm: Sinus Conclusions: - The left ventricular systolic function is normal. The calculated ejection fraction is 57% by biplane method. - No obvious valvular pathology seen on this study. - There is mild dilatation of the ascending aorta measuring 4.20 cm. Findings Left Ventricle Normal left ventricular cavity size. There is normal left ventricular wall thickness. The left ventricular systolic function is normal. The calculated ejection fraction is 57% by biplane method. There is no evidence of regional wall motion abnormalities. Diastolic function is normal for age. Right Ventricle Mildly increased right ventricular cavity size. There is normal right ventricular systolic function. Atria The left atrium is mildly dilated. The right atrium is normal in size. Aortic Valve The aortic valve structure and function is likely normal. There is no aortic valve stenosis. There is no aortic valve regurgitation. Mitral Valve The mitral valve appears normal. There is trace mitral valve regurgitation. There is no mitral valve stenosis. Pulmonic Valve The pulmonic valve is likely normal. Tricuspid Valve Normal tricuspid valve structure. There is trace tricuspid valve regurgitation. There is no evidence of pulmonary hypertension. Great Vessels The aorta was not well visualized. There is mild dilatation of the ascending aorta measuring 4.20 cm. Venous The inferior vena cava is normal in size and collapses greater than 50% with inspiration. Pericardium/Pleural There is no evidence of pericardial effusion. Prior Study Comparison No prior study available for comparison. Recommendations, Care & Conclusions No obvious valvular pathology seen on this study. Measurements 2D Linear Measurements IVSd: 1.05 0.6-0.9/0.6-1.0 cm LVIDd: 4.40 3.9-5.3/4.2-5.9 cm LVIDd Index: 2.47 2.4-3.2/2.2-3.1 cm/m2 LVIDs: 2.81 2.0-3.6 cm LVPWd: 1.05 0.7-1.1 cm Ao Root: 4.10 2.1-3.5 cm LA Diam: 3.10 2.7-3.8/3.0-4.0 cm LAIDs Index: 1.74 1.5-2.3 cm/m2 LV Mass: 197.02 67-162/88-224 g LV Mass Index: 110.68 43-95/49-115 g/m2 LVOT Diam: 2.30 3.0+(-)1.3 cm 2D Systolic Function EF 4C: 56.60 >55% EF 2C: 60.50 >55% EF BiP: 57.00 >55% Mitral Valve MV Pk E: 0.56 MV PK A: 0.83 MV Decel Time: 209.00 E/A: 0.70 E'Lateral: 9.25 E'Medial: 6.09 E/E' Med: 9.10 E/E' Lat: 6.00 PHT: 61.00 MVA PHT: 3.61 Decel Cataño: 2.66 Aortic Valve AoV Pk Carlin: 1.00 AoV Mn Carlin: 0.68 AoV VTI: 0.26 AoV Pk Grad: 4.00 Aov Mn Grad: 2.00 SEMAJ Cont.VTI: 2.87 LVOT LVOT Pk Carlin: 0.73 LVOT Mn Carlin: 0.48 LVOT VTI: 0.18 LVOT Pk Grad: 2.00 LVOT Mn Grad: 1.00 LVOT Diam: 2.30 LVOT Area: 4.15 Diastolic Function MV Pk E: 0.56 MV Pk A: 0.83 E/A: 0.70 E'Medial: 6.09 E/E' Med: 9.10 E' Laterial: 9.25 E/E' Lat: 6.00 Right Ventricle TAPSE (mm): 32.00 TVS' Carlin: 15.00 Tricuspid Valve TR Pk Carlin: 2.20 TR Pk Grad: 19.00 RA Press: 3.00 RVSP: 22.00 Great Vessels Aorta Ao Root-2D: 4.10 2.0-3.7 cm Ao Asc: 4.20 2.1-3.4 cm Pulmonary Valve PV Pk Carlin: 1.07 Peak PV Grad: 5.00 Updated in Other Vendor System with Status of Final Perfecto Farrell MD electronically signed on 10/06/2023 12:30:23 PM with status of Final
--- NOTE | 2023-10-06 07:37 | PHA.MEDREC ---
Pharmacy Consult ? Medication Reconciliation Pharmacy has completed the medication reconciliation.
[2023-10-06 07:52] LABS: Estimated Average Glucose 148 mg/dL; Hemoglobin A1c % 6.8 % (<6.0)
[2023-10-06 08:00] VITALS: BP 152/84; PULSE 73; RESP 18; TEMP 36.7; O2SAT 94
[2023-10-06 08:03] LABS: Anion Gap 13 (12-20); Blood Urea Nitrogen 14 mg/dL (9-16); Calcium 8.7 mg/dL (8.4-10.2); Carbon Dioxide 24 mmol/L (22-29); Chloride 108 mmol/L (96-108); Cholesterol 98 mg/dL (<200); Creatinine Clr Calc Pharmacy 84.5; Estimated Glomerular Filt Rate > 60; Glucose Random 101 mg/dL (60-115); HDL Cholesterol 43 mg/dL (>40); LDL Cholesterol Calculated 38 mg/dL (<100); Magnesium 1.7 mg/dL (1.6-2.6); Potassium 3.1 mmol/L (3.3-5.1); Sodium 142 mmol/L (135-145); Triglycerides 86 mg/dL (<150)
[2023-10-06 08:13] LABS: Glucose, Whole Blood 125 mg/dL (60-115)
[2023-10-06 08:20] LABS: Thyroid Stimulating Hormone 1.42 uIU/mL (0.32-4.0)
[2023-10-06] MEDS: Aspirin 81 MG TAB.CHEW PO (09:38)
[2023-10-06] MEDS: Atorvastatin Calcium 80 MG TABLET PO (09:38)
[2023-10-06] MEDS: Clopidogrel Bisulfate 75 MG TABLET PO (09:38)
[2023-10-06] MEDS: 0.9 % Sodium Chloride Flush 3 ML SYRINGE IVFLUSH ×2 (09:39→16:23)
--- NOTE | 2023-10-06 11:37 | MHC.CM.PN ---
IMM 10/06/23, EMR REVIEWED, PT ADMITTED W/CVA, PER P.T. PT WILL NEED HOME SERVICES, CM MET W/PT WHO REPORTS HE LIVES W/ [place], HAS A CANE/WALKER AT HOME BUT DOES NOT USE THEM, PT INDEP AT BASELINE, NO HOME SERVICES. PT EDUCATED ON AND DECLINES TO COMPLETE A HCP HOWEVER PT'S NOW AT BEDSIDE ASKING ABOUT HCP AND CM TO REVISIT. PT DENIED RECEIVING ANY COVID VACCINES, PCP VERIFIED RYAN GREENBERG
[2023-10-06 11:42] VITALS: BP 152/84; PULSE 73; O2SAT 94
[2023-10-06 12:00] VITALS: BP 145/71; PULSE 72; RESP 16; TEMP 36.4; O2SAT 96
[2023-10-06 12:21] LABS: Glucose, Whole Blood 247 mg/dL (60-115)
--- NOTE | 2023-10-06 14:05 | PC.NURSE ---
Addendum entered by Zara Henriquez 10/11/23 14:22: We also spoke to patient about smoking cessation. Information provided in stroke education packet. reports that he has not had a cigarette since the 10/04. Patient declined patch, gum etc when offered by this RN. Importance of smoking cessation discussed with patient and he verbalized understanding/teachback. Original Note: Met with patient and family around 1245 today. Pt reports feeling well. Pt states that he is ambulatory and PT came to evaluate him. Tolerated PO without difficulty. Stroke Education provided to patient and . All questions answered. Pt and family aware and agreeable to care plan.
[2023-10-06 16:00] VITALS: BP 148/81; PULSE 63; RESP 16; TEMP 37.2; O2SAT 93
--- NOTE | 2023-10-06 16:02 | P.CNNE_ITS ---
History of Present Illness Data of Consult Service Date: 10/06/23 Primary Care Provider: Kirk Santoro MD [facility] Reason for consult: stroke with slurred speech and imbalance This is a 73 year old white male with a history of T2DM, hyperlipidemia, smoker brought to the emergency room for evaluation of stroke symptoms. He reportedly woke up at 11:30 AM 10/04 lethargic and went back to sleep. Later he was noted be have unsteady gait and slurred speech. This improved during the day and he was back to his baseline by the time they got to the emergency room today. His initially thought that this was because of his blood sugars and his refusal to go to the hospital hence the delay in presentation. He otherwise has no other complaints at this time. No previous h/o stroke. MRI confirms an acute left thalamic infarct and subacute small right thalamic infarct and extensive chronic microvascular dosease and old left occipital infarct. CTA head and neck negative. He is back to his baseline.. Review of Systems 2 Review of Systems: Yes all other systems are reviewed and are negative Constitutional: Constitutional: Reports no additional constitutional complaints, Denies chills, Denies fever(s) and Denies night sweats Eyes: Eyes: Reports no additional eye complaints, Denies blurry vision, Denies change in vision, Denies diplopia, Denies eye discharge, Denies loss of vision and Denies eye pain ENT: Denies dizziness Cardiovascular: Cardiovascular: Reports no additional cardiovascular complaints, Denies chest pain, Denies lightheadedness, Denies Loss of Consciousness and Denies dyspnea Respiratory: Respiratory: Reports no additional respiratory complaints and Denies dyspnea Gastrointestinal: Gastrointestinal: Reports no additional gastrointestinal complaints, Denies abdominal pain, Denies melena, Denies hematochezia, Denies change in bowel habits and Denies change in stool character Genitourinary: Genitourinary: Reports no additional male genitourinary complaints, Denies hematuria, Denies oliguria, Denies difficulty urinating, Denies dysuria, Denies urinary frequency, Denies urinary hesitancy, Denies urinary incontinence and Denies urinary urgency Musculoskeletal: Musculoskeletal: Reports no additional musculoskeletal complaints, Denies numbness and Denies tingling Neurologic: Denies dizziness, Denies loss of vision, Denies numbness and Denies tingling Psychiatric: Psychiatric: Reports no additional psychiatric complaints Endocrine: Endocrine: Reports no additional endocrine complaints Hematologic/Lymphatic: Hematologic/Lymphatic: Reports no additional hematologic/lymphatic complaints Allergic/Immunologic: Allergic/Immunologic: Reports no additional allergic/immunologic complaints [facility] Past Medical History Medical History Smoker unmotivated to quit Type 2 diabetes mellitus Diabetes type 2, controlled Family History Pertinent family history: Reviewed with patient and not perinent to this admission Social History Social History Household Members: Spouse Housing: House Do you presently have visiting nurse or other home services: No Patient Tobacco Use Status: Former Tobacco user Quit Date: 10/05/23 Tobacco use type: Cigarette Smoked in Last 30 Days: Yes e-Cigarette/Vaping Use: Never Used Patient Interested in Nicotine Replacement: Yes Patient Given Instructions on How to Stop Smoking: No Second Hand Smoke Exposure: No Use of substances other than those prescribed or required for medical reasons: No Currently Displaying Signs/Symptoms of Drug Intoxication Withdrawal: No Have you been hit, kicked, punched, or otherwise hurt by someone within the past year? If so, by whom?: No Do you feel safe in your current relationship?: Yes Is there a partner from a previous relationship who is making you feel unsafe now?: No Are you made to feel afraid or neglected: No Advance Directives: No Advance Directives Information Provided: No Do you have thoughts of harming others: None Recently lost weight without trying: Unsure Nutrition Risks: No Nutritional Risk service: No Meds Allergies Allergy/AdvReac Type Severity Reaction Status Date / Time No Known Allergies Allergy Unverified 06/25/20 14:36 Active Medications: Current Medications Acetaminophen (Acetaminophen 325 Mg Tablet) 650 mg PO Q6H PRN PRN Reason: Pain, Mild (Pain Scale 1-3) Al Hydroxide/Mg Hydroxide (Magnesium Hydrox/Alum Hydrox 30 Ml Oral.Susp) 30 ml PO Q4H PRN PRN Reason: Heartburn/Nausea Aspirin (Aspirin 81 Mg Tab.Chew) 81 mg PO DAILY [facility] Last Admin: 10/06/23 09:38 Dose: 81 mg Atorvastatin Calcium (Atorvastatin Calcium 80 Mg Tablet) 80 mg PO DAILY [facility] Last Admin: 10/06/23 09:38 Dose: 80 mg Clopidogrel Bisulfate (Clopidogrel Bisulfate 75 Mg Tablet) 75 mg PO DAILY [facility] Last Admin: 10/06/23 09:38 Dose: 75 mg Docusate Sodium (Docusate Sodium 100 Mg Capsule) 100 mg PO BID [facility] Last Admin: 10/06/23 09:39 Dose: Not Given Enoxaparin Sodium (Enoxaparin Sodium 40 Mg/0.4 Ml Syringe) 40 mg SUBCUT BEDTIME [facility] Last Admin: 10/06/23 00:54 Dose: 40 mg Melatonin (Melatonin 3 Mg Tablet) 6 mg PO BEDTIME PRN PRN Reason: Insomnia Ondansetron HCl (Ondansetron Hcl 4 Mg/2 Ml Vial) 4 mg IVPUSH Q8H PRN PRN Reason: Nausea and Vomiting Sodium Chloride (0.9 % Sodium Chloride Flush 3 Ml Syringe) 3 ml IVFLUSH QSHIFT [facility] Last Admin: 10/06/23 10:12 Dose: Not Given Home Medications Medication Instructions Recorded Confirmed Last Taken Type atorvastatin 10 mg tablet 10 mg PO BEDTIME 10/05/23 10/06/23 10/04/23 History glipizide 2.5 mg tablet, extended 2.5 mg PO DAILY 10/05/23 10/05/23 10/04/23 History release 24 hr metformin 500 mg tablet 500 mg PO BID 10/05/23 10/05/23 10/04/23 History pioglitazone 45 mg tablet 45 mg PO DAILY 10/05/23 10/05/23 10/04/23 History sildenafil 100 mg tablet 100 mg PO DAILY PRN Erectile 10/05/23 10/06/23 Unknown History Dysfunction Physical Exam 2 Vital Signs: Vital Signs: Last Vital Signs Temp 97.6 F 10/06/23 12:00 Pulse 72 10/06/23 12:00 Resp 16 10/06/23 12:00 BP 145/71 H 10/06/23 12:00 Pulse Ox 96 10/06/23 12:00 O2 Del Method Room Air 10/06/23 12:00 BMI result Body Mass Index 22.2 Const: General: cooperative, no acute distress, alert and awake Nutritional Appearance: well nourished Orientation/consciousness: patient oriented x3 Limitations: no limitations HEENT: Head: Yes normal to inspection and Yes atraumatic Ears: hearing grossly normal bilaterally and external ears normal General nose exam: Normal external nose present, no nasal discharge noted and no epistaxis Face and sinus: Yes normal facial exam, No abrasion and No laceration Mouth: Normal oral and palatal mucosa present, no drooling and no muffled voice Eyes: General: appearance normal, both eyes and all related structures P eriorbital: periorbital findings normal Eyelids: Yes eyelids normal C onjunctivae: conjunctivae normal Pupils: Equal, round and reactive pupils present EOM: EOMs intact bilaterally Neck: Neck: Yes normal visual inspection, Yes full ROM and Yes no lymphadenopathy Chest: Chest palpation & inspection: normal inspection of the chest Resp: Effort & Inspection: normal respiratory effort and able to speak in complete sentences GI: Inspection: Yes normal to inspection Neuro: Other: He is alert and oriented with normal intellectual function and speech. Cranial nerves are normal. Muscle tone and strength are normal in all 4 extremities. Deep tendon reflexes are hypoactive. Plantar responses are flexor. There are no sensory deficits General: patient oriented x3 and moves all extremities Cranial nerves: Y es Equal, round and reactive pupils present Cognition (Neuro): normal cognition Motor exam (neuro): 5/5 motor strength present throughout S ensory Exam: Normal double simultaneous stimulation for sensation C oordination: [id number] test normal Extrem: General: Yes normal to inspection, Yes full ROM and Yes capillary refill normal Psych: Appearance: grossly normal Mental Status: mental status grossly normal Affect: normal affect Attitude: cooperative Thought process: N ormal thought process present Thought content: Normal thought content present Insight: Good insight present (Psych) Results Labs 10/05/23 19:23 10/06/23 07:21 Labs: Short CBC 10/05/23 Range/Units 19:23 WBC 5.9 (4.8-10.8) X10*3/uL Hgb 14.2 (14.0-18.0) g/dl Hct 41.4 L (42.0-52.0) % Plt Count 194 D (160-400) X10*3/uL BMP 10/05/23 10/06/23 19:23 07:21 Sodium 145 142 Potassium 3.1 L D 3.1 L Chloride 107 108 Carbon Dioxide 27 24 BUN 16 14 Creatinine 0.86 0.75 Calcium 9.4 8.7 D Liver Function 10/05/23 Range/Units 19:23 Total Bilirubin 0.5 (0.0-1.0) mg/dL AST 17 (5-37) U/L ALT 13 (0-40) U/L Alkaline Phosphatase 62 (39-117) U/L Albumin 4.0 (3.5-5.0) g/dL Urine 10/05/23 Range/Units 22:48 Urine Color Yellow Urine Appearance Clear Urine pH 7.5 (5.0-9.0) Ur Specific [place] >= 1.030 H (1.005-1.025) Urine Protein Negative (Neg-Trace) mg/dL Urine Glucose (UA) Negative (Negative) mg/dL Assessment and Plan (1) CVA (cerebral vascular accident): Qualifiers: CVA mechanism: unspecified Qualified Code(s): I63.9 - Cerebral infarction, unspecified Status: Acute Acute left thalamic infarct with no deficits at this time. Multiple old infarcts in the left occipital and bilateral white matters. These appear to be related to small vessel disease. CTA is unremarkable. Recommendations: Aspirin 81 mg daily. Control of blood sugar. Continue atorvasttatin. Check echocardiogram results. He can be discharged (2) Hypokalemia: Status: Acute Plan 73 year old white male with history of T2DM, hyperlipidemia and tobacco use disorder here with 1. CVA - acute to subacute - admit and get MRI of brain and MRA of head and neck - check lipid panel, TSH, A1c - get 2 D echo - Neurology consult 2. Type 2 diabetes mellitus - resume Metformin, Glipizide and actos 3. Hyperlipidemia - resume atorvastatin 4, Smoker - encourage smoking cessation DVT: SC Lovenox CODE STATUS: Full code Admission for at least 2 midnights for management of CVA Procedures Date of Service Date of Service: 10/06/23
--- NOTE | 2023-10-06 16:44 | PM.DS ---
DS: Providers Provider Date of Service: 10/06/23 Date of admission: 10/05/23 23:34 Date of discharge: 10/06/23 Primary care physician: Kirk Santoro MD Consults: 10/06/23 02:49 Consult to Neurology Routine Consulting Provider: [facility] Reason for consultation: CVA Has provider been notified: No Attending physician on discharge: Sivakumar Bautista Discharging clinician: Kristi Rodriguez DS: Diagnosis Discharge Diagnosis (1) CVA (cerebral vascular accident): Status: Acute (2) Hypokalemia: Status: Acute DS: Summary Hospital Course Hospital Course: From H&P on the day of admission 73 year old white male at with a history of T2DM and active tobacco use disorder is brought to the emergency room from home by his for evaluation of stroke symptoms. He reportedly woke up at 11:30 AM yesterday with an unsteady gait and slurred speech. This improved during the day and he was back to his baseline by the time they got to the emergency room today. His initially thought that this was because of his blood sugars hence the delay in presentation. He otherwise has no other complaints at this time. Initial work up done in the emergency room was notable for finding of mild hypokalemia with a serum potassium of 3.[address] head with findings suspicious for infarctions including age indeterminate hypodensities in the left thalamus, left posteromedial occipital lobe, left posterior cerebellum and right basal ganglia. Admission was requested for continued work up. Acute CVA CT showing multifocal age inderterminate hypodensitis suspicious for infarctions. CTA with no significant stenosis or occlusion. He was admitted to the hospital for further management. Brain MRI showing acute infarcts within the left greater than right thalamus mild petechial hemorrhage within the left thalamus. There is global cerebral volume loss moderate chronic microangiopathy and multiple chronic cortical/subcortical infarcts within the periphery of the cerebral hemispheres bilaterally and multiple chronic lacunar infarcts within the cerebellar hemispheres bilaterally. Patient was seen by neurology who recommended aspirin. ECHO obtained with no significant abnormalities - mild dilation of ascending aorta. LDL was checked and was low, but was started on high intensity statin. Passed swallow evaluation. PT recommended home with PT services - attempted to obtain and in progress at the time of discharge. This was discussed with the patient and his at the bedside, if we are unable to set up home physical therapy she will discuss outpatient physical therapy with the patient's PCP. They are in agreement with this plan. potassium was replaced. Time Attestation Discharge coordination time: Greater than 30 minutes Quality: Safe Use of Opioids Does Pt have an Active Cancer Diagnosis on the Problem List?: No Quality: Stroke Does the patient have a stroke diagnosis?: Yes Reason for No Anti-thrombotic at DC: N/A - Med Ordered Reason for No Anticoagulant at DC: Not indicated Reason Not Initiating IV-Tpa: Not indicated Reason for No Anti-thrombotic by Day Two: Not indicated Reason for No Statin at DC: N/A - Med Ordered Physical Exam Vital Signs: Vital Signs: Last Vital Signs Temp 97.6 F 10/06/23 12:00 Pulse 72 10/06/23 12:00 Resp 16 10/06/23 12:00 BP 145/71 H 10/06/23 12:00 Pulse Ox 96 10/06/23 12:00 O2 Del Method Room Air 10/06/23 12:00 BMI result Body Mass Index 22.2 Const: General: cooperative, comfortable, no acute distress, alert and awake Nutritional Appearance: average body habitus Orientation/consciousness: patient oriented x3 Resp: Effort & Inspection: normal respiratory effort, able to speak in complete sentences, no respiratory distress and no use of accessory muscles Cardio: Rate: regular rate Neuro: General: patient oriented x3, moves all extremities and CN's II-XI intact bilaterally DS: Data Data Completed and Pending Labs on day of discharge: Laboratory Results - last 24 hr 10/05/23 10/05/23 10/05/23 19:23 21:18 22:48 WBC 5.9 RBC 4.61 Hgb 14.2 Hct 41.4 L MCV 89.8 MCH 30.8 MCHC 34.3 RDW 13.4 Plt Count 194 D MPV 9.2 L Immature Gran % (Auto) 0.2 Neut % (Auto) 62.8 Lymph % (Auto) 23.9 [place] % (Auto) 10.3 Eos % (Auto) 1.4 Baso % (Auto) 1.4 Lymph # (Auto) 1.4 [place] # (Auto) 0.6 Eos # (Auto) 0.1 Baso # (Auto) 0.1 Abs Immat Gran (auto) 0.01 Absolute Neuts (auto) 3.7 Absolute Nucleated RBC 0.000 Nucleated RBC % (auto) 0.0 PT 12.8 INR 1.1 Sodium 145 Potassium 3.1 L D Chloride 107 Carbon Dioxide 27 Anion Gap 14 BUN 16 Creatinine 0.86 Estim Creat Clear Calc 76.1 Estimated GFR > 60 POC Glucose Random Glucose 148 H Estimat Average Glucose Hemoglobin A1c % Calcium 9.4 Magnesium 1.7 Total Bilirubin 0.5 AST 17 ALT 13 Alkaline Phosphatase 62 Troponin I High Sens 5.6 5.9 Total Protein 6.7 Albumin 4.0 Triglycerides Cholesterol LDL Cholesterol, Calc HDL Cholesterol Lipase 12 TSH Urine Color Yellow Urine Appearance Clear Urine pH 7.5 Ur Specific [place] >= 1.030 H Urine Protein Negative Urine Glucose (UA) Negative Urine Ketones Negative Urine Blood Trace H Urine Nitrite Negative Ur Leukocyte Esterase Negative Urine RBC 3-5 H Urine WBC 0-5 Ur Squamous Epith Cells 0-2 Urine Bacteria None Seen Hyaline Casts 0-2 10/06/23 10/06/23 10/06/23 02:29 07:21 08:10 WBC RBC Hgb Hct MCV MCH MCHC RDW Plt Count MPV Immature Gran % (Auto) Neut % (Auto) Lymph % (Auto) [place] % (Auto) Eos % (Auto) Baso % (Auto) Lymph # (Auto) [place] # (Auto) Eos # (Auto) Baso # (Auto) Abs Immat Gran (auto) Absolute Neuts (auto) Absolute Nucleated RBC Nucleated RBC % (auto) PT INR Sodium 142 Potassium 3.1 L Chloride 108 Carbon Dioxide 24 Anion Gap 13 BUN 14 Creatinine 0.75 Estim Creat Clear Calc 84.5 Estimated GFR > 60 POC Glucose 109 125 H Random Glucose 101 Estimat Average Glucose 148 Hemoglobin A1c % 6.8 H Calcium 8.7 D Magnesium 1.7 Total Bilirubin AST ALT Alkaline Phosphatase Troponin I High Sens Total Protein Albumin Triglycerides 86 Cholesterol 98 LDL Cholesterol, Calc 38 HDL Cholesterol 43 Lipase TSH 1.42 Urine Color Urine Appearance Urine pH Ur Specific [place] Urine Protein Urine Glucose (UA) Urine Ketones Urine Blood Urine Nitrite Ur Leukocyte Esterase Urine RBC Urine WBC Ur Squamous Epith Cells Urine Bacteria Hyaline Casts 10/06/23 12:15 WBC RBC Hgb Hct MCV MCH MCHC RDW Plt Count MPV Immature Gran % (Auto) Neut % (Auto) Lymph % (Auto) [place] % (Auto) Eos % (Auto) Baso % (Auto) Lymph # (Auto) [place] # (Auto) Eos # (Auto) Baso # (Auto) Abs Immat Gran (auto) Absolute Neuts (auto) Absolute Nucleated RBC Nucleated RBC % (auto) PT INR Sodium Potassium Chloride Carbon Dioxide Anion Gap BUN Creatinine Estim Creat Clear Calc Estimated GFR POC Glucose 247 H Random Glucose Estimat Average Glucose Hemoglobin A1c % Calcium Magnesium Total Bilirubin AST ALT Alkaline Phosphatase Troponin I High Sens Total Protein Albumin Triglycerides Cholesterol LDL Cholesterol, Calc HDL Cholesterol Lipase TSH Urine Color Urine Appearance Urine pH Ur Specific [place] Urine Protein Urine Glucose (UA) Urine Ketones Urine Blood Urine Nitrite Ur Leukocyte Esterase Urine RBC Urine WBC Ur Squamous Epith Cells Urine Bacteria Hyaline Casts Discharge Plan Discharge Anticipated Discharge Date/Time: 10/06/23 17:17 Patient Disposition: Home Health Service Discharge Diagnosis: acute left thalamic stroke hypokalemia Referrals: Kirk Santoro MD [Primary Care Provider] - 1 Week Discharge Medications: New atorvastatin 80 mg Tablet 80 mg PO DAILY 30 Days Qty: 30 0RF aspirin 81 mg Tablet,Chewable 81 mg PO DAILY 30 Days Qty: 30 0RF Continued glipizide 2.5 mg tablet extended release 24hr 2.5 mg PO DAILY pioglitazone 45 mg tablet 45 mg PO DAILY sildenafil 100 mg tablet 100 mg PO DAILY PRN (Reason: Erectile Dysfunction) Held metformin 500 mg tablet 500 mg PO BID Hold Instructions: hold until 10/07 after 8 pm Discontinued atorvastatin 10 mg tablet 10 mg PO BEDTIME Discharge Orders: Discharge Order (Routine); Ordered 10/06/23 Ordered By: Kristi Rodriguez Activity on Discharge: As tolerated Stand Alone Forms: Patient Portal Discharge page Care Plan Goals: see below Health Concerns: acute stroke Plan of Treatment: take aspirin 81 mg daily statin dose has been increased to 40 mg daily monitor blood sugar closely call to schedule follow up appointment with PCP hold metformin until the after 8 pm due to use of contrast with imaging the case mgr is attempting to set up home PT, but may need to have outpatient physical therapy ordered by PCP if unable to do so as per our verbal discussion Assessment: see discharge summary
--- NOTE | 2023-10-06 16:51 | MHC.CM.PN ---
CM RECEIVED MESSAGE FROM HOSPITALIST TO [place] [facility] HOWEVER ONLY [facility] PT'S INSURANCE, [facility], [facility], [facility] AND [facility]. [facility] DOES NOT GO TO [facility] DECLINED D/T AT [facility], [facility] REPORTS A STAFF SHORTAGE, CM CONTACTED [facility] WHO REPORTED THEY ARE UNABLE TO ACCOMMODATE AND CM CONTACTED [facility] AND AWAITING CALL BACK.
[2023-10-06] MEDS: Potassium Chloride Packet 20 MEQ PACKET 40 MEQ PO (17:09)
[2023-10-06] MEDS: Magnesium Oxide 400 MG TABLET PO (17:10)
--- NOTE | 2023-10-06 17:12 | MHC.CM.PN ---
PT DISCHARGING HOME W/[facility] FOR HOME PT IF THEY CAN ACCOMMODATE, OTHERWISE PT'S WILL BRING HIM TO PCP FOR DIRECT REFERRAL FOR OUTPT PT, AT BEDSIDE AND WILL TRANSPORT
[2023-10-06 17:13] LABS: Glucose, Whole Blood 137 mg/dL (60-115)
--- NOTE | 2023-10-06 17:22 | P.F2F_ITS ---
Service Date Service Date: 10/06/23 Encounter Date of encounter: 10/06/23 Reasons for Services Signs and symptoms assessed: needs PT for gait training, balance Reason for physical therapy: therapeutic exercises and gait/transfer training MD Overseeing Care: Kirk Santoro Homebound: Leaving the home is medically contraindicated at this time without the asist of a device and/or another person due th the listed conditions above and below. Reason homebound: unsteady gait / fall risk and poor balance / fall risk Certification: Based on the above findings, I certify that this patient is confined to the home and needs intermittent long-term care, physical therapy and/or speech therapy, or continues to need occupational therapy. The patient is under my care, and I have initiated the establishment of the plan of care. The patient will be followed by a physician who will periodically review the plan of care. Time Spent With Patient Time: Total time managing care of this patient today ____ minutes.
== END 2023-10-06 18:22 | disposition home health service (06) | DRG 66 ==
LOC: HO.ED 19:44 → HO.EDOVER 23:41 → HO.IMC 10-06 00:35
PROVIDERS: Physician Assistant Medical; Admitting Provider Internal Medicine; Emergency Provider Emergency Medicine; PCP Internal Medicine; Visit Provider Physician Assistant Medical
DX: I63.9 Cerebral infarction, unspecified (principal); E87.6 Hypokalemia; R26.81 Unsteadiness on feet; E78.5 Hyperlipidemia, unspecified; E11.9 Type 2 diabetes mellitus without complications; R29.702 NIHSS score 2; R47.81 Slurred speech; Z71.6 Tobacco abuse counseling; F17.210 Nicotine dependence, cigarettes, uncomplicated; Z79.84 Long term (current) use of oral hypoglycemic drugs; Z79.899 Other long term (current) drug therapy
CPT/HCPCS: 36415; 70450; 70496; 70498; 70551; 71046; 80048; 80053; 80061; 81001; 82947; 83036; 83690; 83735; 84443; 84484; 85025; 85610; 93005; 93306; 97162; 99222; 99285; J1650; J3480; Q9957; Q9967

== ENCOUNTER → 2023-10-05 19:12 | Outpatient (BNV) | payer MEDICARE, SELFPAY | PROVIDERS: Admitting Provider Internal Medicine; Emergency Provider Emergency Medicine; PCP Internal Medicine; Visit Provider Internal Medicine | DX: R94.31 Abnormal electrocardiogram [ECG] [EKG] (principal) | CPT/HCPCS: 93010 ==

== ENCOUNTER 2023-10-05 23:34 | Outpatient (BNV) | payer MEDICARE, SELFPAY | END 2023-10-06 07:00 | PROVIDERS: Admitting Provider Internal Medicine; Emergency Provider Emergency Medicine; PCP Internal Medicine; Visit Provider Internal Medicine | DX: I63.9 Cerebral infarction, unspecified (principal) | CPT/HCPCS: 93306 ==

== ENCOUNTER → 2023-10-05 23:34 | Outpatient (BNV) | payer MEDICARE, SELFPAY | PROVIDERS: Admitting Provider Internal Medicine; Emergency Provider Emergency Medicine; PCP Internal Medicine; Visit Provider Internal Medicine | DX: I63.9 Cerebral infarction, unspecified (principal); E87.6 Hypokalemia | CPT/HCPCS: 99223; 99239; G0180 ==

== ENCOUNTER 2024-09-13 13:16 | Emergency (ER) | payer MEDICARE, SELFPAY ==
--- NOTE | ~2024-09-13 | CT_ITS ---
EXAMINATION: CT ABDOMEN AND PELVIS WITH CONTRAST CLINICAL INFORMATION: Abdominal pain. COMPARISON: None available. TECHNIQUE: Multidetector volumetric images were obtained from the superior aspect of the liver through the pubic symphysis following administration 85 mL of Omnipaque 350 intravenous contrast. Sagittal and coronal reformatted images were obtained on the technologist's workstation. Oral contrast: No This CT examination was performed using dose optimization techniques as appropriate, variously including the following: *Automated exposure control *Adjustment of mA and/or kV according to patient size (this includes techniques or standardized protocols for targeted exams where dose is matched to indication/reason for exam; i.e. extremities or head) *Use of iterative reconstruction technique DLP: 411 mGy-cm FINDINGS: LUNG BASES: The visualized lung bases are unremarkable. LIVER, GALLBLADDER, AND BILIARY TREE: The liver is of mild diminished attenuation. No focal liver lesions are seen. There is no intrahepatic biliary duct dilatation. The gallbladder is unremarkable with no evidence of radiopaque gallstones, gallbladder wall thickening, or obvious pericholecystic inflammatory changes. PANCREAS: There is atrophy of the pancreas with pancreatic duct dilatation up to 8 mm beginning at the neck of the pancreas. No definitive discrete pancreatic mass is identified. SPLEEN: Unremarkable. ADRENAL GLANDS: Unremarkable. KIDNEYS AND URETERS: The kidneys are normal in size, shape, and attenuation. There are no intrarenal calculi. There is mild left hydronephrosis and hydroureter extending into the pelvis to the level of a 5 x 9 mm distal left ureteric calculus. BLADDER: There is thickening of the urinary bladder. GASTROINTESTINAL TRACT: Prominent fluid-filled possibly mildly thickened small bowel loops. The appendix is visualized and is within normal limits. ABDOMINAL WALL: No significant hernia is appreciated. LYMPH NODES: Normal. VASCULAR: There is atherosclerotic plaque of the abdominal aorta and proximal branches. PELVIC VISCERA: Unremarkable. OSSEOUS STRUCTURES: There is thoracolumbar degenerative change. CT/CT abdomen pelvis w IV con IMPRESSION: 1. Mild left hydronephrosis and hydroureter extending into the pelvis to the level of a 5 x 9 mm distal left ureteric calculus. 2. There is atrophy of the pancreas with pancreatic duct dilatation up to 8 mm. No definitive discrete pancreatic mass is identified. Further evaluation with contrast-enhanced MRI of the pancreas with and without contrast and MRCP is suggested. 3. Prominent fluid-filled possibly mildly thickened small bowel loops. This may be seen with enteritis. Correlation needed. Fleischner guidelines were followed. Electronically signed by: Dimas Mcdermott MD 09/13/2024 11:43 PM MOISES GREGORIO
[2024-09-13 13:19] VITALS: BP 105/68; PULSE 88; RESP 16; TEMP 37; O2SAT 97; BMI 20.7
[2024-09-13 14:24] LABS: MANUAL DIFF FLAG NO
[2024-09-13 14:27] LABS: Basophils Percent Auto 0.4 % (0-2); Eosinophils Percent Auto 0.2 % (0-4); Hematocrit 38.3 % (42.0-52.0); Hemoglobin 13.6 g/dl (14.0-18.0); Imm Gran Abs Auto 0.04 X10*3/uL (0.00-0.03); Imm Gran Pct Auto 0.8 % (0.0-0.4); Lymphocytes Absolute Auto 0.3 X10*3/uL (1.2-4.9); Lymphocytes Percent Auto 6.5 % (20-40); Mean Corpuscular HGB Conc 35.5 g/dl (31.0-36.0); Mean Corpuscular Hemoglobin 31.3 pg (27.0-33.0); Monocytes Absolute Auto 0.6 X10*3/uL (0.1-1.2); Monocytes Percent Auto 10.8 % (2-11); Neutrophils Absolute Auto 4.3 x10*3/uL (2.0-8.3); Neutrophils Percent Auto 81.3 % (45-73); Platelet Count 189 X10*3/uL (160-400); Red Blood Count 4.35 X10*6/uL (4.60-5.80); Red Cell Distribution Width 14.4 % (11.0-16.0); White Blood Count 5.3 X10*3/uL (4.8-10.8)
[2024-09-13 14:32] LABS: VBG Base Excess 1.6 mmol/L; VBG HCO3 27 mmol/L (22-26); VBG pCO2 44 mmHg; VBG pH 7.38 (7.32-7.43); VBG pO2 38 mmHg
[2024-09-13 14:33] LABS: Venous Blood Gas Refer to POC result
[2024-09-13 14:38] LABS: Beta-Hydroxybutyrate 4.14 mmol/L (0.02-0.27)
[2024-09-13 14:39] LABS: Alanine Aminotransferase 33 U/L (0-40); Albumin Level 3.7 g/dL (3.5-5.0); Alkaline Phosphatase 40 U/L (39-117); Anion Gap 18 (12-20); Aspartate Amino Transferase 32 U/L (5-37); Bilirubin Direct 0.3 mg/dL (0.0-0.5); Bilirubin Total 0.7 mg/dL (0.0-1.0); Blood Urea Nitrogen 24 mg/dL (9-16); Calcium 8.8 mg/dL (8.4-10.2); Carbon Dioxide 26 mmol/L (22-29); Chloride 97 mmol/L (96-108); Creatinine Clr Calc Pharmacy 56.4; Estimated Glomerular Filt Rate > 60; Glucose Random 218 mg/dL (60-115); Lipase 58 U/L (8-78); Potassium 3.5 mmol/L (3.3-5.1); Sodium 137 mmol/L (135-145); Total Protein 6.3 g/dL (6.5-8.0)
--- NOTE | 2024-09-13 15:35 | ED_ITS ---
HPI - General Adult General Chief complaint: Abdominal Pain Stated complaint: High blood sugar, unable to eat Time Seen by Provider: 09/13/24 20:18 History of Present Illness ED Provider: Corey VERGARA narrative: The patient is a 73-year-old male with a history of type 2 diabetes. He is on metformin, glipizide, and Actos. The patient also has a history of prostate cancer. He had a prostatectomy a few years ago but a few months ago he had rising PSA levels and so he received radiation therapy at [facility] from the end of June through the month of July. The patient comes to the emergency room today because over the last week he has had increasing nausea and food aversion. He has eaten very little. He has had occasional vomiting. He has had upper abdominal pains. He has not had any fevers. He has not he feels weak. He also says that his blood sugars have been running in the 200s which is higher than usual. His partner has been encouraging him to come to the emergency room for the last several days. Finally he contacted his primary care doctor today who told him he should come to the emergency room. The patient has a apparently had hematuria noted recently. Related Data Home Medications ?Medication ?Instructions ?Recorded ?Confirmed glipizide 2.5 mg tablet, extended 2.5 mg PO DAILY 10/05/23 10/05/23 release 24 hr metformin 500 mg tablet 500 mg PO BID 10/05/23 10/05/23 pioglitazone 45 mg tablet 45 mg PO DAILY 10/05/23 10/05/23 sildenafil 100 mg tablet 100 mg PO DAILY PRN Erectile 10/05/23 10/06/23 Dysfunction Previous Rx's ?Medication ?Instructions ?Recorded aspirin 81 mg chewable tablet 81 mg PO DAILY 30 days #30 tabs 10/06/23 atorvastatin 80 mg tablet 80 mg PO DAILY 30 days #30 tabs 10/06/23 ondansetron 4 mg disintegrating 4 mg PO Q6H PRN nausea and 09/14/24 tablet vomiting #14 tabs tamsulosin 0.4 mg capsule 0.4 mg PO BEDTIME #7 caps 09/14/24 Allergies Allergy/AdvReac Type Severity Reaction Status Date / Time Sulfa (Sulfonamide AdvReac Gastrointestinal Verified 09/13/24 13:20 Antibiotics) Upset Review of Systems 2 Review of Systems: Yes all other systems are reviewed and are negative PMFSH Past Medical History Medical History (Updated 09/14/24 @ 00:11 by Ernst Nicole MD) Smoker unmotivated to quit Type 2 diabetes mellitus Diabetes type 2, controlled Social History Social History Household Members: Spouse Housing: House Do you presently have visiting nurse or other home services: No Patient Tobacco Use Status: Former Tobacco user Tobacco use type: Cigarette Smoked in Last 30 Days: No e-Cigarette/Vaping Use: Never Used Second Hand Smoke Exposure: No Use of substances other than those prescribed or required for medical reasons: No Advance Directives: No Advance Directives Information Provided: No service: No Physical Exam ED Vital Signs: Vital Signs - 24 hr 09/13/24 13:19 09/13/24 15:36 09/13/24 19:28 Temperature 98.6 F 98.2 F 97.8 F Pulse Rate 88 85 89 Respiratory Rate 16 16 14 Blood Pressure 105/68 133/82 123/76 Pulse Oximetry 97 99 99 Oxygen Delivery Method Room Air Room Air Room Air 09/14/24 00:12 09/14/24 00:30 Temperature 97.6 F 97.6 F Pulse Rate 71 71 Respiratory Rate 17 17 Blood Pressure 122/71 122/71 Pulse Oximetry 96 96 Oxygen Delivery Method Room Air Room Air BMI result Body Mass Index 20.7 Const Other: The patient is a slim 73-year-old who was awake and alert. He looks somewhat chronically ill but not obviously acutely ill. HENMT Other: Face is symmetrical. Mucous membranes moist. Eyes General: appearance normal, both eyes and all related structures Neck Neck: Yes full ROM Resp Effort & Inspection: normal respiratory effort Auscultation: clear to auscultation bilaterally Cardio Rate: regular rate Rhythm: regular rhythm Heart sounds: S1 normal heart sound present and S2 normal heart sound present GI Other: Some mild diffuse upper abdominal tenderness without focal tenderness, rebound, or guarding General: Yes no CVA tenderness Back/Spine/Pelvis Back: no CVA tenderness Skin General skin exam: no rashes or lesions noted Neuro Other: The patient is awake and alert. Mental status is normal. Cranial nerves are intact. He moves extremities normally. He seems grossly neurologically intact. Extrem Other: No peripheral edema Course Course Course Narrative: This is an RME done by PRISCILA Jalloh: Additional HPI, ROS, PE not included below will be deferred to primary provider. 73-year-old male history of diabetes mellitus type 2, CVA, hypokalemia presenting with abdominal pain, nausea, vomiting, x1 week. Reports elevated blood sugars at home and high 200s. Has been feeling overall unwell. Has not been tolerating p.o.. Medications Administered Discontinued Medications Generic Name Dose Route Start Last Admin Trade Name Freq PRN Reason Stop Dose Admin Sodium Chloride 1,000 mls @ 999 mls/hr 09/13/24 20:45 09/13/24 21:47 Ns IV 09/13/24 21:45 Infused .Q1H1M FREDIS Infusion Sodium Chloride 1,000 mls @ 999 mls/hr 09/13/24 23:00 09/14/24 00:22 Ns IV 09/14/24 00:00 Infused .Q1H1M FREDIS Infusion Iohexol 85 ml 09/13/24 21:23 09/13/24 21:24 Iohexol 350 Mg/Ml 100 Ml Infus..Btl IV 09/13/24 21:24 85 ml ONCE ONE Administration Ondansetron HCl 4 mg 09/13/24 20:44 09/13/24 20:51 Ondansetron Hcl 4 Mg/2 Ml Vial IVPUSH 09/13/24 20:45 4 mg ONCE ONE Administration Pantoprazole Sodium 40 mg 09/13/24 20:41 09/13/24 20:51 Pantoprazole Sodium 40 Mg/10 Ml Vial IVPUSH 09/13/24 20:42 40 mg ONCE ONE Administration Tamsulosin HCl 0.4 mg 09/14/24 00:08 09/14/24 00:27 Tamsulosin Hcl 0.4 Mg Capsule PO 09/14/24 00:09 0.4 mg ONCE ONE Administration Medical Decision Making Medical Decision Making MDM Narrative: The patient is a 73-year-old male who presents with 1 week of nausea and food aversion. He says his blood sugars have been higher than usual, in the 200s. He describes some vague upper abdominal discomfort but no real pain. He does not have any back pain. He does not have any lateralizing flank pain. No fever, sweats, chills. The patient had unremarkable labs. However he did have some hematuria and ketones in his urine. A CT of the abdomen and pelvis was done to look for some possible cause of his symptoms. Surprisingly the CT scan showed a left distal ureteral stone 9 mm x 5 mm. The patient denies any sense of flank pain at all. He has no CVA tenderness. His urinalysis does not suggest UTI. The patient received 2 L of IV fluids in the emergency room and a dose of ondansetron with improvement in his nausea. The patient will be started on tamsulosin. He will be prescribed ondansetron for nausea. He has a urologist. He recently finished a course of radiation therapy for a rising PSA. The patient will follow up with his urologist Dr. Torres. The images of his CT scan were forwarded to the [facility] imaging system Lab Data 09/13/24 14:16 09/13/24 14:16 Labs: Lab Results 09/13/24 09/13/24 09/13/24 Range/Units 14:16 14:28 19:23 WBC 5.3 (4.8-10.8) X10*3/uL RBC 4.35 L (4.60-5.80) X10*6/uL Hgb 13.6 L (14.0-18.0) g/dl Hct 38.3 L (42.0-52.0) % MCV 88.0 (80.0-98.0) fL MCH 31.3 (27.0-33.0) pg MCHC 35.5 (31.0-36.0) g/dl RDW 14.4 (11.0-16.0) % Plt Count 189 (160-400) X10*3/uL MPV 9.0 L (9.4-12.4) fL Immature Gran % (Auto) 0.8 H (0.0-0.4) % Neut % (Auto) 81.3 H (45-73) % Lymph % (Auto) 6.5 L (20-40) % [place] % (Auto) 10.8 (2-11) % Eos % (Auto) 0.2 (0-4) % Baso % (Auto) 0.4 (0-2) % Lymph # (Auto) 0.3 L (1.2-4.9) X10*3/uL [place] # (Auto) 0.6 (0.1-1.2) X10*3/uL Eos # (Auto) 0.0 (0.0-0.4) X10*3/uL Baso # (Auto) 0.0 (0.0-0.2) X10*3/uL Abs Immat Gran (auto) 0.04 H (0.00-0.03) X10*3/uL Absolute Neuts (auto) 4.3 (2.0-8.3) x10*3/uL Absolute Nucleated RBC 0.000 (0.0-0.012) X10*3/uL Nucleated RBC % (auto) 0.0 (0.0-0.2) /100WBC VBG pH 7.38 (7.32-7.43) VBG pCO2 44 mmHg VBG pO2 38 mmHg VBG HCO3 27 H (22-26) mmol/L VBG O2 Saturation 58.0 % VBG Base Excess 1.6 mmol/L Sodium 137 (135-145) mmol/L Potassium 3.5 (3.3-5.1) mmol/L Chloride 97 (96-108) mmol/L Carbon Dioxide 26 (22-29) mmol/L Anion Gap 18 (12-20) BUN 24 H (9-16) mg/dL Creatinine 1.05 (0.5-1.4) mg/dL Estim Creat Clear Calc 56.4 Estimated GFR > 60 POC Glucose 156 H (60-115) mg/dL Random Glucose 218 H (60-115) mg/dL Calcium 8.8 (8.4-10.2) mg/dL Total Bilirubin 0.7 (0.0-1.0) mg/dL Direct Bilirubin 0.3 (0.0-0.5) mg/dL AST 32 (5-37) U/L ALT 33 (0-40) U/L Alkaline Phosphatase 40 (39-117) U/L C-Reactive Protein < 0.10 (< or = 0.50) mg/dL Total Protein 6.3 L (6.5-8.0) g/dL Albumin 3.7 (3.5-5.0) g/dL Lipase 58 (8-78) U/L Beta-Hydroxybutyrate 4.14 H (0.02-0.27) mmol/L Urine Color Urine Appearance Urine pH (5.0-9.0) Ur Specific [place] (1.005-1.025) Urine Protein (Neg-Trace) mg/dL Urine Glucose (UA) (Negative) mg/dL Urine Ketones (Negative) mg/dL Urine Blood (Negative) Urine Nitrite (Negative) Ur Leukocyte Esterase (Negative) Urine RBC (0-2) /HPF Urine WBC (0-5) /HPF Ur Squamous Epith Cells (0-2) /HPF Urine Bacteria (None Seen) Hyaline Casts (0-2) /LPF Ethyl Alcohol < 10 mg/dL 09/13/24 Range/Units 21:53 WBC (4.8-10.8) X10*3/uL RBC (4.60-5.80) X10*6/uL Hgb (14.0-18.0) g/dl Hct (42.0-52.0) % MCV (80.0-98.0) fL MCH (27.0-33.0) pg MCHC (31.0-36.0) g/dl RDW (11.0-16.0) % Plt Count (160-400) X10*3/uL MPV (9.4-12.4) fL Immature Gran % (Auto) (0.0-0.4) % Neut % (Auto) (45-73) % Lymph % (Auto) (20-40) % [place] % (Auto) (2-11) % Eos % (Auto) (0-4) % Baso % (Auto) (0-2) % Lymph # (Auto) (1.2-4.9) X10*3/uL [place] # (Auto) (0.1-1.2) X10*3/uL Eos # (Auto) (0.0-0.4) X10*3/uL Baso # (Auto) (0.0-0.2) X10*3/uL Abs Immat Gran (auto) (0.00-0.03) X10*3/uL Absolute Neuts (auto) (2.0-8.3) x10*3/uL Absolute Nucleated RBC (0.0-0.012) X10*3/uL Nucleated RBC % (auto) (0.0-0.2) /100WBC VBG pH (7.32-7.43) VBG pCO2 mmHg VBG pO2 mmHg VBG HCO3 (22-26) mmol/L VBG O2 Saturation % VBG Base Excess mmol/L Sodium (135-145) mmol/L Potassium (3.3-5.1) mmol/L Chloride (96-108) mmol/L Carbon Dioxide (22-29) mmol/L Anion Gap (12-20) BUN (9-16) mg/dL Creatinine (0.5-1.4) mg/dL Estim Creat Clear Calc Estimated GFR POC Glucose (60-115) mg/dL Random Glucose (60-115) mg/dL Calcium (8.4-10.2) mg/dL Total Bilirubin (0.0-1.0) mg/dL Direct Bilirubin (0.0-0.5) mg/dL AST (5-37) U/L ALT (0-40) U/L Alkaline Phosphatase (39-117) U/L C-Reactive Protein (< or = 0.50) mg/dL Total Protein (6.5-8.0) g/dL Albumin (3.5-5.0) g/dL Lipase (8-78) U/L Beta-Hydroxybutyrate (0.02-0.27) mmol/L Urine Color Yellow Urine Appearance Clear Urine pH 5.5 (5.0-9.0) Ur Specific [place] >= 1.030 H (1.005-1.025) Urine Protein 30 (1+) H (Neg-Trace) mg/dL Urine Glucose (UA) Negative (Negative) mg/dL Urine Ketones 40 (Negative) mg/dL Urine Blood Large (3+) H (Negative) Urine Nitrite Negative (Negative) Ur Leukocyte Esterase Negative (Negative) Urine RBC >20 H (0-2) /HPF Urine WBC 0-5 (0-5) /HPF Ur Squamous Epith Cells 0-2 (0-2) /HPF Urine Bacteria None Seen (None Seen) Hyaline Casts 0-2 (0-2) /LPF Ethyl Alcohol mg/dL Discharge Plan Discharge Clinical Impression: Left ureteral calculus, Nausea & vomiting Patient Disposition: Home, Self-Care Instructions: Ureteral Stones (ED) Additional Instructions: The CT scan of your abdomen today shows that you have a 9 mm x 5 mm stone in your left ureter just above your bladder. It is surprising that you are not experiencing more pain associated with this. This would explain why you have seen blood in your urine and it might explain why you have had such nausea. Please plan on taking tamsulosin (Flomax) once a day at bedtime. This is a medication that can help relax the ureter and might help ease passage of the stone. I have also sent a prescription for ondansetron (Zofran) to your pharmacy which you may use as needed for nausea. I have sent the images of your CT scan electronically to the [employer] system. My hope is that this will allow your urologist to be able to see your images. Please contact Dr. Torres's office on Monday to set up a prompt follow up appointment to discuss this kidney stone further. Return to the emergency room if you feel significantly worse Prescriptions: New tamsulosin 0.4 mg capsule 0.4 mg PO BEDTIME Qty: 7 0RF ondansetron 4 mg tablet,disintegrating 4 mg PO Q6H PRN (Reason: nausea and vomiting) Qty: 14 0RF No Action glipizide 2.5 mg tablet extended release 24hr 2.5 mg PO DAILY metformin 500 mg tablet 500 mg PO BID pioglitazone 45 mg tablet 45 mg PO DAILY sildenafil 100 mg tablet 100 mg PO DAILY PRN (Reason: Erectile Dysfunction) atorvastatin 80 mg Tablet 80 mg PO DAILY 30 Days Qty: 30 0RF aspirin 81 mg Tablet,Chewable 81 mg PO DAILY 30 Days Qty: 30 0RF Referrals: Tray Torres MD [Physician] - (left distal ureteral stone) Kirk Santoro MD [Primary Care Provider] - (Nausea x1 week, surprising finding of left ureteral stone) Interventions: ED Discharge Assessment Last Done: 09/14/24 00:30 Discharge Date/Time: 09/14/24 00:31 Print Language: German
[2024-09-13 15:36] VITALS: BP 133/82; PULSE 85; RESP 16; TEMP 36.8; O2SAT 99
[2024-09-13 19:27] LABS: Glucose, Whole Blood 156 mg/dL (60-115)
[2024-09-13 19:28] VITALS: BP 123/76; PULSE 89; RESP 14; TEMP 36.6; O2SAT 99
--- NOTE | 2024-09-13 20:33 | ECG_ITS ---
Test Reason : NAUSEA Blood Pressure : / mmHG Vent. Rate : 079 BPM Atrial Rate : 079 BPM P-R Int : 144 ms QRS Dur : 134 ms QT Int : 426 ms P-R-T Axes : 059 083 001 degrees QTc Int : 488 ms Sinus rhythm with occasional , and consecutive Premature ventricular complexes Right bundle branch block Possible Inferior infarct (cited on or before 05-OCT-2023) Abnormal ECG When compared with ECG of 05-OCT-2023 19:35, Premature ventricular complexes are now Present T wave inversion now evident in Inferior leads Referred By: Ernst Nicole Electronically Signed By:Dereje Pond
[2024-09-13] MEDS: 0.9 % Sodium Chloride 1,000 ML 999 ML IV ×2 (20:39→23:04)
[2024-09-13] MEDS: Pantoprazole Sodium 40 MG/10 ML VIAL IVPUSH (20:51)
[2024-09-13] MEDS: ondansetron HCL 4 MG/2 ML VIAL IVPUSH (20:51)
[2024-09-13 20:52] LABS: C Reactive Protein < 0.10 mg/dL (< or = 0.50); Ethanol < 10 mg/dL
--- NOTE | 2024-09-13 20:52 | PC.NURSE ---
pt a&ox4, respirations even and unlabored. pt reporting onset of nausea vomiting and upper abdominal pain x3 days. pt denies diarrhea at this time. pt reports Poor PO intake and noted to have higher blood glucose levels. 20G placed in left forearm, pt medicated per mar.
[2024-09-13] MEDS: iohexoL 350 MG/ML 100 ML INFUS..BTL 85 ML IV (21:24)
[2024-09-13 22:00] LABS: Appearance Urine Clear; Color Urine Yellow; Glucose Urine UA Negative (Negative); Leukocyte Esterase Urine Negative (Negative); Nitrite Urine Negative (Negative); PH 5.5 (5.0-9.0); Specific Gravity - Urine >= 1.030 (1.005-1.025); UMIC TRIGGER UACC YES; Urine Blood Large (3+) (Negative); Urine Ketones 40 mg/dL (Negative); Urine Protein 30 (1+) mg/dL (Neg-Trace)
[2024-09-13 22:14] LABS: Bacteria Urine None Seen (None Seen); Hyaline Casts Urine 0-2 /LPF (0-2); RBC Urine >20 /HPF (0-2); Squamous Epithelial Cell Urine 0-2 /HPF (0-2); WBC Urine 0-5 /HPF (0-5)
[2024-09-14 00:12] VITALS: BP 122/71; PULSE 71; RESP 17; TEMP 36.4; O2SAT 96
[2024-09-14] MEDS: Tamsulosin HCL 0.4 MG CAPSULE PO (00:27)
[2024-09-14 00:30] VITALS: BP 122/71; PULSE 71; RESP 17; TEMP 36.4; O2SAT 96
== END 2024-09-14 00:31 | disposition home or self-care (01) ==
PROVIDERS: Physician Assistant; Emergency Provider Emergency Medicine; PCP Internal Medicine
DX: N13.2 Hydronephrosis with renal and ureteral calculous obstruction (principal); R11.2 Nausea with vomiting, unspecified; E11.9 Type 2 diabetes mellitus without complications; Z86.73 Personal history of transient ischemic attack (TIA), and cerebral infarction without residual deficits; Z79.84 Long term (current) use of oral hypoglycemic drugs; Z79.899 Other long term (current) drug therapy
CPT/HCPCS: 36415; 74177; 80048; 80076; 80307; 81001; 81003; 82010; 82803; 82947; 83690; 85025; 86140; 93005; 96361; 96374; 96375; 99285; J2405; J2470; Q9967

== ENCOUNTER → 2024-09-13 20:33 | Outpatient (BNV) | payer MEDICARE, SELFPAY | PROVIDERS: Emergency Provider Emergency Medicine; PCP Internal Medicine; Visit Provider Internal Medicine Cardiovascular Disease | DX: I49.3 Ventricular premature depolarization (principal) | CPT/HCPCS: 93010 ==